=== PATIENT | male | born 1935 | race Caucasian/White ===

== ENCOUNTER 2016-11-18 22:41 | Inpatient (IN) | payer OTHER ==
[~2016-11-18] VITALS: Ht 172.7 cm; Wt 113.4 kg
[~2016-11-18 22:41] MED LIST: ALLOPURINOL300 MG PO; ATENOLOL25 MG PO; AVODART0.5 MG PO; ECOTRIN81 MG PO; FUROSEMIDE20 MG PO; HYDRALAZINE HCL25 MG PO; NORVASC 5MG TAB5 MG PO; PRAVASTATIN SOD40 MG PO; PRAZOSIN HYDROCH2 MG PO; TAMIFLU 75MG75 MG PO; TAMSULOSIN HYD0.4 MG PO; VALSARTAN80 MG PO
--- NOTE | 2016-11-18 22:46 | ED AMS/SEIZURE/WEAK/DIZZY ---
History of Present Illness General Chief Complaint: Altered Mental Status Stated Complaint: BIBA ALTERED MENTAL STATUS Source: patient, EMS Exam Limitations: confusion Vital Signs & Intake/Output Vital Signs & Intake/Output Vital Signs Date Time Temp Pulse Resp B/P B/P Pulse O2 O2 Flow FiO2 Mean Ox Delivery Rate 11/19 0139 100.0 84 18 136/70 94 Nasal 2.0L Cannula 11/19 0041 100.0 11/19 0000 Room Air 11/18 2340 104.2 11/18 2242 104.2 108 18 127/86 94 Room Air ED Intake and Output 11/19 0000 11/18 1200 Intake Total Output Total 100 Balance -100 Output, Urine 100 Patient 250 lb Weight Weight Reported by Patient Measurement Method Allergies Coded Allergies: NO KNOWN ALLERGIES (06/20/14) Reconcile Medications Allopurinol 300 MG TAB 1 TAB PO DAILY GOUT (Reported) Amlodipine (Norvasc 5MG Tab) 5 MG TABLET 1 TAB PO DAILY BP (Reported) Aspirin (Ecotrin) 81 MG ECT 1 TAB PO DAILY HEART (Reported) Atenolol 25 MG TABLET 1 TAB PO DAILY BP (Reported) Furosemide 20 MG TABLET 1 TAB PO BID DIURETIC (Reported) HYDRALAZINE HCL (Hydralazine HCl) 25 MG TABLET 1 TAB PO BID BP (Reported) Pravastatin Sodium 40 MG TABLET 1 TAB PO QPM CHOLESTEROL (Reported) TAMSULOSIN HCL (Tamsulosin Hydrochloride) 0.4 MG CAP.ER.24H 1 CAP PO DAILY PROSTATE (Reported) Valsartan 80 MG TABLET 1 TAB PO DAILY BP (Reported) Triage Nurses Notes Reviewed? yes Onset: Gradual Duration: day(s): Timing: recent history Injury Environment: home Severity: moderate Modifying Factors: Improves With: rest. Associated Symptoms: cough HPI: 81 yo gentleman presents with fever, cough, confusion, weakness and decreased oral intake for at least one day. Past History Travel History Traveled to [place] past 21 day No Medical History Any Pertinent Medical History? see below for history Neurological: NONE EENT: NONE Cardiovascular: hypertension, hyperlipidemia Respiratory: obstructive sleep apnea Gastrointestinal: constipation Hepatic: NONE Renal: NONE Musculoskeletal: NONE Psychiatric: NONE Endocrine: NONE Cancer(s): NONE DIRECTOR DIVERSITY/Reproductive: NONE History of MRSA: No History of VRE: No History of CDIFF: No Surgical History Surgical History: L HIP REPLAC. Psychosocial History Who do you live with Spouse Services at Home None What is your primary language Serbian Family History Family History, If Any: Relation not specified for: *No pertinent family history Hx Contributory? No Review of Systems Review of Systems Constitutional: Reports: no symptoms. EENTM: Reports: no symptoms. Respiratory: Reports: no symptoms. Cardiovascular: Reports: no symptoms. GI: Reports: no symptoms. Genitourinary: Reports: no symptoms. Musculoskeletal: Reports: no symptoms. Skin: Reports: no symptoms. Neurological/Psychological: Reports: no symptoms. Hematologic/Endocrine: Reports: no symptoms. Immunologic/Allergic: Reports: no symptoms. All Other Systems: Reviewed and Negative Physical Exam Physical Exam General Appearance: well developed/nourished, mild distress Head: atraumatic, normal appearance Eyes: Bilateral: normal appearance. Ears, Nose, Throat: dry mucosa Neck: normal inspection, supple, full range of motion Respiratory: quiet respiration, bilateral rhonchi with decreased breath sounds Cardiovascular: regular rate/rhythm Gastrointestinal: normal bowel sounds, soft, non-tender, no organomegaly Back: normal inspection, normal range of motion Extremities: normal range of motion Neurologic/Psych: no motor/sensory deficits, lethargic, knows name, knows "hospital", does not know day or year Skin: intact, normal color, warm/dry Core Measures ACS in differential dx? No CVA/TIA Diagnosis: No Severe Sepsis Present: No Septic Shock Present: No Progress Differential Diagnosis: dehydration, hypoglycemia, hypoxia, UTI/pyelo Plan of Care: Orders Procedure Date/time Status Nothing by Mouth 11/19 B Active LACTIC ACID 11/19 0202 Active Saline Lock 11/19 0156 Active Misc Message 11/19 0156 Active ED Holding Orders 11/19 0156 Active Admit to inpatient 11/19 0156 Active Vital Signs 11/19 0156 Active Code Status 11/19 0156 Active BLOOD CULTURE 11/19 0020 Active Add-on Test (ER Only) 11/19 0019 Active RAPID VIRAL INFLUENZA A 11/19 0019 Complete ARTERIAL BLOOD GAS (GEN) 11/19 0002 Complete LYME TITRE 11/18 2326 Active LACTIC ACID 11/18 2302 Complete CULTURE,URINE 11/18 2300 Active URINALYSIS 11/18 2300 Complete TROPONIN LEVEL 11/18 2256 Complete COMPREHENSIVE METABOLIC PANEL 11/18 2256 Complete CBC WITHOUT DIFFERENTIAL 11/19 2255 Complete EKG 11/18 225 Active Current Medications Sig/Mark Start time Last Medication Dose Stop Time Status Admin Azithromycin 500 MG ONCE ONE 11/19 0200 UNVr (Zithromax) 11/19 025 Sodium Chloride 250 ML (Normal Saline 0.9%) Laboratory Tests 11/19/16 0010: pH 7.42, pCO2 38, pO2 62 L, HCO3 24, ABG O2 Sat (Measured) 91.0 L, P-50 (Temp Corrected) N, Carboxyhemoglobin 0.5 L, O2 Concentration % 2L, O2 Delivery Method N/C, Phlebotomy Draw Site RIGHT RADIAL 11/18/162331: Urine Color YEL, Urine Clarity CLEAR, Urine pH 6.5, Ur Specific [place] 1.020, Urine Protein >=300 H, Urine Ketones NEG, Urine Nitrite NEG, Urine Bilirubin NEG, Urine Urobilinogen 0.2, Ur Leukocyte Esterase NEG, Ur Microscopic SEDIMENT EXAMINED, Urine RBC 1-3, Ur Epithelial Cells RARE, Hyaline Casts RARE H, Urine Hemoglobin MOD H, Urine Glucose NEG 11/18/162325: Lactic Acid 2.0 11/18/162325: Anion Gap 12, Estimated GFR 45 L, BUN/Creatinine Ratio 24.0, Glucose 110 H, Calcium 8.5, Total Bilirubin 0.4, AST 29, ALT 32, Alkaline Phosphatase 70, Troponin I 0.07, Total Protein 6.3, Albumin 3.4 L, Globulin 2.9, Albumin/ Globulin Ratio 1.2, CBC w Diff NO MAN DIFF REQ, RBC 4.78, MCV 92.3, MCH 30.4, RDW 13.8, MPV 9.4, Gran % 79.7 H, Lymphocytes % 8.3 L, Monocytes % 11.8 H, Eosinophils % 0, Basophils % 0.2, Absolute Granulocytes 7.9 H, Absolute Lymphocytes 0.8 L, Absolute Monocytes 1.2 H, Absolute Eosinophils 0, Absolute Basophils 0, PUBS MCHC 32.9 L, Lyme Disease Antibody Pending Microbiology 11/19 44 BLOOD: Blood Culture - RECD 11/20 39 NASOPHARYN: Influenza Virus A & B Rapid Smear - COMP 11/19 003 BLOOD: Blood Culture - RECD 11/19 2331 URINE ROUT: Urine Culture - RECD Diagnostic Imaging: Viewed by Me: Radiology Read, CT Scan. Discussed w/RAD: Radiology Read, CT Scan. Radiology Impression: head ct... no acute change. CXR Impression: no acute abnormality, no infiltrates, normal size heart, normal mediastinum Initial ED EKG: normal axis, normal intervals, normal p-waves, normal QRS complex, normal sinus rhythm Comments: PATIENT: QUINN CUMMINGS PRESENT AGE: 81 PATIENT ACCOUNT NO: [id number] : 37 LOCATION: [facility] ORDERING PHYSICIAN: TONIE CAMPOS MD SERVICE DATE: 11/18/16 EXAM TYPE: RAD - XRY-PORTABLE CHEST XRAY EXAMINATION: XR PORTABLE CHEST CLINICAL INFORMATION: Hypoxia COMPARISON: Chest x-ray 01/30/2015 TECHNIQUE: Portable frontal view of the chest was obtained. 11:31 PM FINDINGS: Lung volume is low. Heart size enlarged. No pulmonary vascular congestion. No infiltrate or pleural effusion. Compared to prior study no change. IMPRESSION: No acute abnormality of chest. DICTATED BY: JADA SON MD DATE/TIME DICTATED:11/18/162358 WHEEL PRESS CLERK:VERO DATE/TIME TRANSCRIBED:11/18/162358 CONFIDENTIAL, DO NOT COPY WITHOUT APPROPRIATE AUTHORIZATION. <Electronically signed in Other Vendor System> SIGNED BY: JADA SON MD 11/19/16 0004 Departure Departure Disposition: STILL A PATIENT Condition: Stable Clinical Impression Primary Impression: Sepsis Secondary Impressions: Pneumonia Referrals: JOHN PECK,DREW Arteaga (PCP/Family) Departure Forms: Customer Survey General Discharge Information Comments 11/18/16, 23:00.... O2 SAT 88% ON ROOM AIR... CORRECTS TO 95% ON 2LNC Admission Note Spoke With: COMPA DIXON MD Documentation of Exam: Documentation of any treatments & extenuating circumstances including Concerns Regarding Discharge (functional status, medication knowledge or non-compliance, living conditions, etc.) that warrant an admission rather than observation: pt hypoxic with phlegmy cough, meets criteria for sepsis.... pt merits 02 support, iv abx. other labs stable.... cxr neg, but I believe this is due to body habitus and dehydration. Critical Care Note Critical Care Note Critical Care Time: 30-74 min
[2016-11-18 23:52] LABS: ABSOLUTE BASOPHIL COUNT 0 /CUMM (0.0-0.2); ABSOLUTE EOSINOPHIL COUNT 0 /CUMM (0.0-0.7); ABSOLUTE GRANULOCYTE CT 7.9 /CUMM (1.4-6.5); ABSOLUTE LYMPH COUNT 0.8 /CUMM (1.2-3.4); ABSOLUTE MONOCYTE COUNT 1.2 /CUMM (0.10-0.60); BASOPHIL % 0.2 % (0.0-2.0); EOSINOPHIL % 0 % (0-5); GRANULOCYTE % 79.7 % (42.2-75.2); HEMATOCRIT 44.2 % (42-52); MEAN CORPUSCULAR HGB 30.4 PG (27.0-31.0); MEAN CORPUSCULAR HGB CONC 32.9 G/DL (33.0-37.0); MEAN CORPUSCULAR VOLUME 92.3 FL (80.0-94.0); MEAN PLATELET VOLUME 9.4 FL (7.4-10.4); PLATELET COUNT 178 /CUMM (130-400); RBC DISTRIBUTION WIDTH 13.8 % (11.5-14.5); RED BLOOD CELL CT 4.78 /CUMM (4.70-6.10); WHITE BLOOD CELL COUNT 9.9 /CUMM (4.8-10.8)
--- NOTE | 2016-11-19 00:04 | RADIOLOGY REPORT ---
EXAMINATION: XR PORTABLE CHEST CLINICAL INFORMATION: Hypoxia COMPARISON: Chest x-ray 01/30/2015 TECHNIQUE: Portable frontal view of the chest was obtained. 11:31 PM FINDINGS: Lung volume is low. Heart size enlarged. No pulmonary vascular congestion. No infiltrate or pleural effusion. Compared to prior study no change. IMPRESSION: No acute abnormality of chest.
--- NOTE | 2016-11-19 01:30 | CT SCAN REPORT ---
EXAMINATION: CT HEAD WITHOUT CONTRAST CLINICAL INFORMATION: Mental status change. COMPARISON: None available. TECHNIQUE: Contiguous axial imaging was performed from the skull base to vertex without intravenous administration of contrast. FINDINGS: There is no intracranial hemorrhage, hydrocephalus, extra-axial surface collection, midline shift, or other herniation pattern. 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 Mcclure to white matter differentiation is diffusely maintained without evidence of an evolved acute territorial infarct. The basilar cisterns are preserved. No significant soft tissue abnormality. No acute osseous abnormality. Near complete opacification of the left maxillary sinus. Mild mucosal thickening within the right maxillary sinus and throughout the ethmoid air cells and left frontal sinus. Mastoid air cells are clear. IMPRESSION: - No acute intracranial abnormality. - Sinus disease including complete opacification of the left maxillary sinus that should be correlated for clinical signs of acute sinusitis.
--- NOTE | 2016-11-19 02:51 | History & Physical ---
IZABEL PECK,DIDIDaniela 11/19/16 0248: General Information and HPI MD Statement: I have seen and personally examined QUINN CUMMINGS and documented this H&P. The patient is a 81 year old M who presented with a patient stated chief complaint of [AMS and hematuria]. Source of Information: family, old records Exam Limitations: unable to give history, not alert/orientated, clinical condition, confusion, poor historian History of Present Illness: This is a 80 yo male with PMH of BPH, HTN, DAMARIS on CPAP, gout who was brought in by ambulance for chief complaint of altered mental status, fever and hematuria. Patient is confused and is currently a poor historian. He is not sure why he is in the ED. He does endorse some red colored urine yesterday. Denies any chest pain, shortness of breath, diarrhea, constipation, cough, headache, change in vision, sore throat, or abdominal pain. Denies feeling poorly or even out of the ordinary. He is able to recognize that he is confused Spoke with the patient's son who stated that patient was in his normal health prior to yesterday. The only complaint noted was some hematuria in the morning. And patient went out into his garden for a few hours and when he returned he seemed to be altered and confused. Then he became weak and unable to rise up from his chair. Patient denies any change in medication or recent travel. He states that he bruised his own wine which he drinks nightly. 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 Allergies/Medications Allergies: Coded Allergies: NO KNOWN ALLERGIES (06/20/14) Home Med list Allopurinol 300 MG TAB 1 TAB PO DAILY GOUT (Reported) Amlodipine (Norvasc 5MG Tab) 5 MG TABLET 1 TAB PO DAILY BP (Reported) Aspirin (Ecotrin) 81 MG ECT 1 TAB PO DAILY HEART (Reported) Atenolol 25 MG TABLET 1 TAB PO DAILY BP (Reported) Furosemide 20 MG TABLET 1 TAB PO BID DIURETIC (Reported) HYDRALAZINE HCL (Hydralazine HCl) 25 MG TABLET 1 TAB PO BID BP (Reported) Pravastatin Sodium 40 MG TABLET 1 TAB PO QPM CHOLESTEROL (Reported) TAMSULOSIN HCL (Tamsulosin Hydrochloride) 0.4 MG CAP.ER.24H 1 CAP PO DAILY PROSTATE (Reported) Valsartan 80 MG TABLET 1 TAB PO DAILY BP (Reported) Compliance With Home Meds: UNKNOWN Past History Travel History Traveled to [place] past 21 day No Medical History Neurological: NONE EENT: NONE Cardiovascular: hypertension, hyperlipidemia Respiratory: obstructive sleep apnea Gastrointestinal: constipation Hepatic: NONE Renal: NONE Musculoskeletal: NONE Psychiatric: NONE Endocrine: NONE Cancer(s): NONE DIRECTOR SUPPLY CHAIN/Reproductive: NONE History of MRSA: No History of VRE: No History of CDIFF: No Surgical History Surgical History: L HIP REPLAC. Past Family/Social History Family History Relations & Conditions if any Relation not specified for: *No pertinent family history Psychosocial History Services at Home: None ETOH Use: occasional use Illicit Drug Use: denies illicit drug use Review of Systems Review of Systems Constitutional: Reports: diaphoresis, fever, malaise, weakness. Denies: chills. EENTM: Denies: blurred vision, double vision, visual changes, ear pain, hearing changes , nasal congestion, epistaxis, nasal pain, throat pain. Cardiovascular: Denies: chest pain, palpitations. Respiratory: Denies: cough, short of breath, sputum production, wheezing. GI: Denies: abdominal pain, constipation, diarrhea, nausea, vomiting. Genitourinary: Reports: hematuria. Musculoskeletal: Reports: no symptoms. Skin: Reports: no symptoms. Neurological/Psychological: Reports: cognitive dysfunction, confusion. Exam & Diagnostic Data Last 24 Hrs of Vital Signs/I&O Vital Signs Date Time Temp Pulse Resp B/P B/P Pulse O2 O2 Flow FiO2 Mean Ox Delivery Rate 11/19 0325 98.9 73 18 130/73 98 Nasal 2.0L Cannula 11/19 0139 100.0 84 18 136/70 94 Nasal 2.0L Cannula 11/19 0041 100.0 11/19 0000 Room Air 11/18 2340 104.2 11/18 2242 104.2 108 18 127/86 94 Room Air Intake & Output 11/19 0800 11/19 0000 11/18 1600 Intake Total Output Total 100 Balance -100 Output, Urine 100 Patient 113.398 kg Weight Weight Reported by Patient Measurement Method Physical Exam General Appearance No Acute Distress, patient is confused. AO x 1 Skin face flushed. Warm to touch. Diaphoretic. Skin Temp/Moisture Exam: Hot/Diaphoretic Sepsis Skin Exam (color): Flushed, adequate cap Refill HEENT Atraumatic, PERRLA, EOMI, neck supple, no pharyngeal erythema. no evidence of ear infections. no tenderness to maxillary or frontal sinuses Neck Supple, No LAD Cardiovascular Regular Rate, Normal S1, Normal S2, 2/6 murmur Lungs crackles in right middle and lower lobes Abdomen Soft Neurological Strength at 5/5 X4 Ext, Sensation Intact, Cranial Nerves 3-12 NL, confused, Pinpoint pupils Extremities 1+ edema in bilateral lower extremities Vascular Normal Pulses Last 24 Hrs of Labs/Negro: Laboratory Tests 11/19/16 0212: Lactic Acid 0.6 L 11/19/16 0010: pH 7.42, pCO2 38, pO2 62 L, HCO3 24, ABG O2 Sat (Measured) 91.0 L, P-50 (Temp Corrected) N, Carboxyhemoglobin 0.5 L, O2 Concentration % 2L, O2 Delivery Method N/C, Phlebotomy Draw Site RIGHT RADIAL 11/18/16 2332: Urine Opiates Screen < 100.00, Methadone Screen < 40, Barbiturate Screen < 60, Ur Phencyclidine Scrn < 6.00, Amphetamines Screen < 100, U Benzodiazepines Scrn < 85, Urine Cocaine Screen < 50, Urine Cannabis Screen < 5.00, Urine Color YEL, Urine Clarity CLEAR, Urine pH 6.5, Ur Specific [place] 1.020, Urine Protein >= 300 H, Urine Ketones NEG, Urine Nitrite NEG, Urine Bilirubin NEG, Urine Urobilinogen 0.2, Ur Leukocyte Esterase NEG, Ur Microscopic SEDIMENT EXAMINED, Urine RBC 1-3, Ur Epithelial Cells RARE, Hyaline Casts RARE H, Urine Hemoglobin MOD H, Urine Glucose NEG 11/18/16 2326: Lactic Acid 2.0 11/18/162325: Anion Gap 12, Estimated GFR 45 L, BUN/Creatinine Ratio 24.0, Glucose 110 H, Calcium 8.5, Total Bilirubin 0.4, AST 29, ALT 32, Alkaline Phosphatase 70, Troponin I 0.07, Total Protein 6.3, Albumin 3.4 L, Globulin 2.9, Albumin/ Globulin Ratio 1.2, CBC w Diff NO MAN DIFF REQ, RBC 4.78, MCV 92.3, MCH 30.4, RDW 13.8, MPV 9.4, Gran % 79.7 H, Lymphocytes % 8.3 L, Monocytes % 11.8 H, Eosinophils % 0, Basophils % 0.2, Absolute Granulocytes 7.9 H, Absolute Lymphocytes 0.8 L, Absolute Monocytes 1.2 H, Absolute Eosinophils 0, Absolute Basophils 0, PUBS MCHC 32.9 L, Lyme Disease Antibody Pending Microbiology 11/19 004 BLOOD: Blood Culture - RECD 11/19 0040 NASOPHARYN: Influenza Virus A & B Rapid Smear - COMP 11/19 0035 BLOOD: Blood Culture - RECD 11/18 2332 URINE ROUT: Urine Culture - RECD Assessment/Plan Assessment: This is a 74-year-old male with past medical history significant for BPH, hypertension, DAMARIS on CPAP, gout, who comes in for chief complaint for altered mental status and hematuria. Patient was found to be significantly febrile up to 104 in ED. As such he'll be admitted to the general medicine floor for further workup and management. ED work up shows: Vitals: 104.2, 108, 18, 127/86, 94 ABG: PH 7.42, PCO2 38, bicarbonate 24 UA: Positive for protein, rare hyaline casts and moderate urine hemoglobin CBC: White count 9.9, hemoglobin 14.5, hematocrit 44.2, platelet 178. No bands BEP: BUN 36, creatinine 1.5. Lactic acid 2.0 CXR IMPRESSION: No acute abnormality of chest. CT HEAD IMPRESSION: No acute intracranial abnormality. Sinus disease including complete opacification of the left maxillary sinus that should be correlated for clinical signs of acute sinusitis. PLAN Sepsis of unknown origin: Patient has MAXIMUM TEMPERATURE 104.2, heart rate 108. Blood pressure 127/86. No white count. Source of infection currently unknown. CT head scan does show complete opacification left maxillary sinus but patient has no tenderness to palpation in that area. The CT Chest/abdomen and pelvis was negative for possible sources. Pt has qSOFA of 1. If all routine workup is negative, considering sudden onset of fever, LE weakness and altered mental status unusual etiologies could be considered including tick borne or mosquito borne illnesses. Pt has no meningeal signs, nuchal rigidity, focal neurological deficits, but he does have pin point pupils. If AMS worsening and no source readily available consider LP. Pt has a hip replacement in l. hip. Joint non-tender, warm with full ROM. * Blood culture * Urine culture * Sputum culture * Negative Lactic acid x 2 * Pt got 1 dose of ceftriaxone and azithromycin in ED * Flu swab * Repeat EKG and TROP * If diarrhea then send out for O/P * If continued AMS then consider lumbar puncture even though patient has already received a dose of ceftriaxone and azithromycin. * We are STOPPING antibiotics after the initial dose in ED and will monitor patient. He will need re-evaluation for abx in AM. * Lyme titer * ID consult Hematuria: Per family, they noted blood in patient's urine. UA in hospital shows moderate hemoglobin. Patient has known BPH. Patient has a history of BPH. Denies any pain however cannot rule out prostatitis etc. * UA * UC * Cont' Flomax for BPH CK D IIIa: Patient comes in with creatinine 1.5 which is around his baseline. * Continue to monitor BEP CAD/HTN: Con't home meds with hold paramenters in place. FULL CODE REGULAR DIET ALPS As Ranked By This Provider Problem List: 1. BPH (benign prostatic hyperplasia) 2. HTN (hypertension) 3. Sepsis Core Measures/Miscellaneous Acute Coronary Syndrome ACS Diagnosis: No Cerebrovascular Accident CVA/TIA Diagnosis: No Congestive Heart Failure CHF Diagnosis: No Venous Thromboembolism VTE Risk Factors: Acute medical illness, Age > 40 No [facility] VTE prophylaxis d/t: VTE low risk No VTE Pharm Prophylaxis d/t: VTE low risk VTE Diagnosis: No VTE Type: NONE VTE Confirmed by (Test): NONE Severe Sepsis Severe Sepsis Present: No Septic Shock Septic Shock Present: No Miscellaneous Documentation Attending Case Discussed With: GINA DIXON MDDaniela Primary Care Physician: DREW LOPEZ MD Patient sees these Specialists unknown Level of Patient Care: General Medicine Consults Needed: Consulting Specialty: Infectious Disease ZAKC PECK, FRANCK 11/19/16 0549: Attending Review Statement Attending Statement Attending MD Statement: examined this patient, discuss w/resident/PA/OIL FIELD TECHNICIAN, agreed w/resident/PA/OIL FIELD TECHNICIAN Attending Assessment/Plan: 81 yo obese Sammarinese speaking M with h/o HTN, BPH, DAMARIS on CPAP, CKD stage 3A, is brought in for evaluation of confusion and fever. Patient reports an episode of hematuria but does not provide any other details. Per family, patient was out in the yard for a few hours and when he returned family noted he was confused and weak with gait instability. Patient's son is an knockdown man at [employer]. Vitals: Tmax 104.2, tachycardic to 108, BP 130/73, sats 98% on 2L. Exam: lethargic, diaphoretic (sheets were soaked in sweat), arousable but confused, oriented x1, does not know why he is in the ER, no nuchal rigidity, pupils are small 2-3 mm but RTL, dry mucous membranes, otoscopic exam neg, no obvious rash on the body, no skin or soft tissue infection. No nuchal rigidity, negative kernigs and brudzinski's sign as per resident. Chest basilar rhonchi+, Heart S1S2 regular, systolic murmur+, Abd soft, tender in the RLQ, BS+. LE: trace edema. Labs: no leukocytosis or bandemia, BUN 36, creat 1.5, LFTs normal, trop neg, CK 115, lactic acid 2.0 --> 0.6. UA proteinuria, otherwise neg. Utox neg. AB.42/38/62/24. CXR: no infiltrate or congestion. CT head: no acute IC abnormality. Sinus disease complete opacification of left maxillary sinus ? acute sinusitis. CT CAP: no acute findings, mild bibasilar atelectasis, no pneumonia, bilateral renal cysts. Flu swab negative. EKG: sinus tachycardia, no acute changes. Patient received IV ceftriaxone and azithro in the ER for a possible pneumonia. 1. SIRS (fever, tachycardia) with no clear source. ?Viral infection. No evidence of pneumonia, UTI or SSTI. CT head shows signs of acute sinusitis, however patient denies s/s nasal congestion, discharge, cough, etc. Meningitis is a possibility. Cannot rule out tick borne illness ?Lyme's. GM admit, panculture, IV fluids, patient received IV ceftriaxone and azithro in the ER, hold off further antibiotics. Check ESR, CRP, HIV. TRC nebs, incentive spirometry. Patient appears more awake, oriented after fever defervesced. Await lyme titers. Acute sinusitis can be managed symptomaticially nebs, mucinex as needed. Consider lumbar puncture. Patient fulfills criteria of fever and AMS, but no nuchal rigidity. Obtain ID consult. Hold lasix. Check another EKG and troponin in AM. DVT ppx Hep SC. Full code Please confirm home meds in AM. NAI PECK,[facility] 11/19/16 0625: Resident Review Statement Resident Statement: examined this patient, discussed with internet developer, agreed with internet developer, discussed with family Other Findings: 80 yo man with a PMH of BPH, HTN, DAMARIS on CPAP, gout who was brought in by ambulance for chief complaint of altered mental status, fever and hematuria. Information from patient and from his son over the phone reveals that he was in his normal state of health until he developed some hematuria 1 day ago in the morning. He subsequently went to work in his garden and then out in an unknwon location for about an hour before return. He developed leg weakness and poor coordination after returning. He was then noted to be confused and on account of this, his son came to see him and then called for EMS. On interaction, he appears slightly confused. He denies any chest pain, shortness of breath, diarrhea, constipation, cough, headache, change in vision, sore throat, or abdominal pain. enies feeling poorly or even out of the ordinary. He adamantly denies any change in medication or recent travel. He states that he brews his own wine which he drinks nightly. 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 Vitals: Tmax 104.2, tachycardic to 108, BP 130/73, sats 98% on 2L Physical Exam General Appearance No Acute Distress, patient is confused. AO x 1 Skin face flushed. Warm to touch. Diaphoretic. Skin Temp/Moisture Exam: Hot/Diaphoretic Sepsis Skin Exam (color): Flushed, adequate cap Refill HEENT Atraumatic, PERRLA, EOMI, neck supple, no pharyngeal erythema. no evidence of ear infections on otoscopy. no tenderness to maxillary or frontal sinuses Neck: Supple, Brudzinski sign negative Supple, No LAD Cardiovascular Regular Rate, Normal S1, Normal S2, 2/6 murmur Lungs crackles in right middle and lower lobes Abdomen Soft Neurological Strength at 5/5 X4 Ext, Sensation Intact, Cranial Nerves 3-12 NL, confused, Pinpoint pupils Extremities 1+ edema in bilateral lower extremities Labs CBC: WBC 9.9, H/H 13.5/40.9, Plt 163, No leukocytosis or bandemia BEP: 141,K 4.1, Creat 1.5, glucose 110 mg/dl, BUN 36,LFTs normal, trop neg, CK 115, lactic acid 2.0 --> 0.6. Urinalysis:Proteinuria, otherwise neg. Utox negative. AB.42/38/62/24 Micro: Flu swab negative,Strep pneumo/legionella urinary Ag negative, Blood culture, Urine cultures pending Imaging CXR: no infiltrate or congestion. CT head: no acute IC abnormality. Sinus disease complete opacification of left maxillary sinus ?acute sinusitis. CT CAP: no acute findings, mild bibasilar atelectasis, no pneumonia, bilateral renal cysts. Flu swab negative. EKG: sinus tachycardia, no acute changes. Problem list 1. SIRS/Fever of unknown origin 2. Altered mental status 3. Presumed pneumonia 4. History of hypertension 5. Hematuria likely secondary to BPH Plan Admit to General Medicine Follow up Blood, Urine cultures No focal signs on examination, low concern for bacterial meningitis However we will monitor mental/neurological status closely and continue IV ceftriaxone 1 gram Q24 hrs and IV azithromycin 500 mg daily for presumed pneumonia Follow up blood cultures and urine cultures Lyme antibody titers ID consult in the AM Monitor CBC for leukocytosis If no response or condition worsens will do LP IV normal saline 1 L at 75 cc/hr Monitor BEP Hold lasix home medication DVT prophylaxis with ALPS CODE STATUS is full code
--- NOTE | 2016-11-19 04:27 | CT SCAN REPORT ---
CT CHEST WITHOUT IV CONTRAST CT ABDOMEN AND PELVIS WITHOUT IV CONTRAST INDICATION: Fever, shortness of breath, and altered mental status. COMPARISON: Abdominal CT June 20, 2014. TECHNIQUE: A multidetector CT acquisition of the chest, abdomen, and pelvis are was obtained without IV contrast FINDINGS: CHEST: There is no focal consolidation, pleural effusion, or pneumothorax. Mild dependent atelectasis at the lung bases. The thoracic aorta is normal in caliber. The heart is enlarged and there is no pericardial effusion. There is no mediastinal, hilar, or axillary adenopathy. No significant soft tissue findings within the chest. The partially visualized upper abdomen is unremarkable. No acute osseous abnormalities. There is diffuse idiopathic skeletal hyperostosis within the thoracic spine. Severe degenerative changes involving the right glenohumeral joint. ABDOMEN AND PELVIS: Limited evaluation of the unenhanced liver, spleen, adrenal glands, gallbladder, and pancreas reveals no definite abnormality. The kidneys are symmetric in size without evidence of hydronephrosis or nephrolithiasis. There are bilateral renal cysts. The large and small bowel are normal in caliber without evidence of mechanical obstruction. Sigmoid diverticulosis without acute diverticulitis. No focal inflammatory changes adjacent to the large or the small bowel. The appendix is normal. There is no free air and there is no intra-abdominal free fluid. No mesenteric or retroperitoneal adenopathy. The pelvic viscera are normal. No pelvic adenopathy. No free fluid within the pelvis. There are no acute osseous abnormalities. There is a left total hip arthroplasty. No significant soft tissue abnormality. IMPRESSION: - No acute findings within the chest, abdomen, or pelvis. - Mild bibasilar atelectasis. No evidence of focal pneumonia. - Sigmoid diverticulosis without acute diverticulitis. - Bilateral renal cysts.
--- NOTE | 2016-11-19 04:33 | Admission Certification ---
Admission Certification Certification Statement - As attending physician, I certify that at the time of - admission, based on clinical presentation, severity of - symptoms, need for further diagnostic testing and - therapeutic interventions, and risk of adverse outcomes - without in-hospital treatment, in my clinical assessment, - this patient requires an acute hospital stay for a minimum - of two nights or longer. I have also considered psychsocial - factors such as support system, advanced age, financial - issues, cognitive issues, and failed out-patient treatments, - past re-admission history, safety of patient, and lack of - compliance as applicable. Specific rationale supporting this admission is: SIRS, fever of unclear etiology.
[2016-11-19 06:57] VITALS: BP 136/70
[2016-11-19 08:39] LABS: ABSOLUTE BASOPHIL COUNT 0 /CUMM (0.0-0.2); ABSOLUTE EOSINOPHIL COUNT 0 /CUMM (0.0-0.7); ABSOLUTE GRANULOCYTE CT 8.2 /CUMM (1.4-6.5); ABSOLUTE MONOCYTE COUNT 1.5 /CUMM (0.10-0.60); BASOPHIL % 0.2 % (0.0-2.0); EOSINOPHIL % 0.1 % (0-5); GRANULOCYTE % 76.1 % (42.2-75.2); HEMATOCRIT 40.9 % (42-52); MEAN CORPUSCULAR HGB 30.5 PG (27.0-31.0); MEAN CORPUSCULAR VOLUME 92.4 FL (80.0-94.0); MEAN PLATELET VOLUME 9.2 FL (7.4-10.4); PLATELET COUNT 163 /CUMM (130-400); RBC DISTRIBUTION WIDTH 14.4 % (11.5-14.5); RED BLOOD CELL CT 4.43 /CUMM (4.70-6.10); WHITE BLOOD CELL COUNT 10.7 /CUMM (4.8-10.8)
--- NOTE | 2016-11-19 11:50 | PN- Att Addend ---
Attending Addendum Attending Brief Note "This is a 80 yo male with PMH of BPH, HTN, DAMARIS on CPAP, gout who was brought in by ambulance for chief complaint of altered mental status, fever and hematuria. Patient is confused and is currently a poor historian. " ASSESSMENT 1. Fever with confusion 2. Toxic metabolic encephalopathy 3. Absent leukocytosis 4. Elevated ESR 5. SINAN on CKD 6. Hematuria with h/h stable. 7. Acute sinusitis PLAN admit to inpatient medical services c/w IVF hydration, c/w broad spectrum abx, f/u labs, f/u cultures. ID consult, monitor neurochecks, fall precuaitons. monitor labs gi/dvt prophalxis full code
--- NOTE | 2016-11-19 11:54 | PN- Student ---
Subjective Subjective: Today Mr. Crespo seems to be alert but slightly confused. He complains of burning chest pain when he coughs as well as some pain in his throat. He denies any production recently in his cough but stated that he did cough up white phlegm a few days ago. He denies any constant chest pain, palpitations, chest heaviness, hemoptysis, dysuria, headache, N/V/D, Abdominal pain, back pain or extremity pain. He states that he doesnt sleep well due to his sleep apnea. He also stated that he had multiple episodes in the past of flecks of blood in his urine. He stated that he went to see his doctor for this and each time was negative for any infection, cancer, or illness. Objective Objective: Vital Signs Date Time Temp Pulse Resp B/P B/P Pulse O2 O2 Flow FiO2 Mean Ox Delivery Rate 11/19 1008 97.5 50 20 136/70 11/19 0657 97.5 50 20 136/70 95 Nasal 2.0L Cannula 11/19 0451 Nasal 2.0L Cannula 11/19 0325 98.9 73 18 130/73 98 Nasal 2.0L Cannula 11/19 0139 100.0 84 18 136/70 94 Nasal 2.0L Cannula 11/19 0041 100.0 11/19 0000 Room Air 11/18 2340 104.2 11/18 2242 104.2 108 18 127/86 94 Room Air Intake & Output 11/19 1600 11/19 0800 11/19 0000 Intake Total 250 Output Total 600 350 Balance -350 -350 Intake, IV 250 Output, Urine 600 350 Patient 250 lb 250 lb Weight Weight Reported by Patient Reported by Patient Measurement Method PE: General- alert and oriented but seems to be a bit confused, poor historian, cooperative, NAD HEENT- atraumatic, PERRLA, membranes moist and pink, slight erythema of oropharynx Neck- supple, no lymphadenopathy or thyromegaly, trachea is midline CV- S1 and S2 appreciated, no murmurs or rubs heard Chest- equal chest rise bilaterally, rhonchi heard throughout on auscultation, good air movement otherwise Abdomen- soft, non-tender to palpation Back- no point tenderness over spinous processes, no step off deformity, no tenderness of costovertebral angle Extremities- no edema, 5/5 strength x 4 extremities, sensation intact Skin- no lesions or rashes noted, warm and well perfused Results Results: Laboratory Tests 11/19/16 0730: Troponin I 0.09 11/19/16 0730: Anion Gap 8, Estimated GFR 45 L, BUN/Creatinine Ratio 23.3, CBC w Diff NO MAN DIFF REQ, RBC 4.43 L, MCV 92.4, MCH 30.5, RDW 14.4, MPV 9.2, Gran % 76.1 H, Lymphocytes % 9.5 L, Monocytes % 14.1 H, Eosinophils % 0.1, Basophils % 0.2, Absolute Granulocytes 8.2 H, Absolute Lymphocytes 1.0 L, Absolute Monocytes 1.5 H, Absolute Eosinophils 0, Absolute Basophils 0, PUBS MCHC 33.0, HIV 1&2 Ab Western Blot Pending 11/19/16 0212: Lactic Acid 0.6 L 11/19/16 0019: Virus Culture Pending 11/19/16 0010: pH 7.42, pCO2 38, pO2 62 L, HCO3 24, ABG O2 Sat (Measured) 91.0 L, P-50 (Temp Corrected) N, Carboxyhemoglobin 0.5 L, O2 Concentration % 2L, O2 Delivery Method N/C, Phlebotomy Draw Site RIGHT RADIAL 11/18/162: Urine Opiates Screen < 100.00, Methadone Screen < 40, Barbiturate Screen < 60, Ur Phencyclidine Scrn < 6.00, Amphetamines Screen < 100, U Benzodiazepines Scrn < 85, Urine Cocaine Screen < 50, Urine Cannabis Screen < 5.00, Urine Color YEL, Urine Clarity CLEAR, Urine pH 6.5, Ur Specific [place] 1.020, Urine Protein >= 300 H, Urine Ketones NEG, Urine Nitrite NEG, Urine Bilirubin NEG, Urine Urobilinogen 0.2, Ur Leukocyte Esterase NEG, Ur Microscopic SEDIMENT EXAMINED, Urine RBC 1-3, Ur Epithelial Cells RARE, Hyaline Casts RARE H, Urine Hemoglobin MOD H, Urine Glucose NEG 11/18/166: Lactic Acid 2.0 11/18/16 2326: Anion Gap 12, Estimated GFR 45 L, BUN/Creatinine Ratio 24.0, Glucose 110 H, Calcium 8.5, Total Bilirubin 0.4, AST 29, ALT 32, Alkaline Phosphatase 70, Creatine Kinase 115, Troponin I 0.07, C-Reactive Prot, Quant 1.3 H, Total Protein 6.3, Albumin 3.4 L, Globulin 2.9, Albumin/Globulin Ratio 1.2, CBC w Diff NO MAN DIFF REQ, RBC 4.78, MCV 92.3, MCH 30.4, RDW 13.8, MPV 9.4, Gran % 79.7 H, Lymphocytes % 8.3 L, Monocytes % 11.8 H, Eosinophils % 0, Basophils % 0.2, Absolute Granulocytes 7.9 H, Absolute Lymphocytes 0.8 L, Absolute Monocytes 1.2 H, Absolute Eosinophils 0, Absolute Basophils 0, PUBS MCHC 32.9 L, ESR Westergren 90 H, Lyme Disease Antibody Pending Microbiology 11/19 44 BLOOD: Blood Culture - RECD 11/20 39 NASOPHARYN: Influenza Virus A & B Rapid Smear - COMP 11/19 34 BLOOD: Blood Culture - RECD 11/19 2331 URINE ROUT: Legionella Antigen - COMP 11/19 2331 URINE ROUT: Streptococcus pneumoniae Antigen (M - COMP 11/19 2331 URINE ROUT: Urine Culture - RES Assessment/Plan Assessment: Mr. Crespo is a 81 yo white Male with a PMH of BPH, HTN, DAMARIS (on C-PAP at home), and gout who was BIBA yesterday (11/18/16) for altered mental status, hematuria, and fever. On admission his temperature was 104.2, HR-108, RR-18, BP-127/86, SpO2-94. Labs were WBC- 9.9, H/H- 14.5/44.2, BUN-36, Undraped Artist Model-1.5, Lactic acid was 2.0. He was admitted to general medicine floor for treatment and monitoring for possible tick borne illness such as lyme or anaplasmosis, Viral infection is also possible. Throat pain could be due to possible strep throat. ABG, Urinalysis, CXR, CT, and Micro was run on the patient with results below. CT Impression: Chest/abdomen/pelvis - No acute findings within the chest, abdomen, or pelvis. - Mild bibasilar atelectasis. No evidence of focal pneumonia. - Sigmoid diverticulosis without acute diverticulitis. - Bilateral renal cysts. Head - No acute intracranial abnormality. - Sinus disease including complete opacification of the left maxillary sinus that should be correlated for clinical signs of acute sinusitis. ABG: - pH= 7.42, pCO2= 38, pO2= 62, HCO3= 24, Carboxyhemoglobin= 0.5 CXR: -No acute abnormality of chest. UA: -Protein >= 300, Hyaline casts rare, hemoglobin moderate; culture negative after 1 day Micro: - negative for strep pneumo, legionella, and influenza A & B, Lyme titer was sent however he has previously had lyme IgM so a positive test could be due to IgG titer from previous exposure. Today he is still a bit confused. Was able to get a bit more information from him regarding his past medical history. He apparently has had bouts of hematuria before that he described as spots of blood in his urine, but each time he presented to the doctor for lab work it was always negative for pathology. His lungs sound rhoncherous on auscultation and he is still coughing but not producing any sputum. His vitals have normalized today temp- 97.5, HR- 50, RR-20 , BP-136/70, SpO2-95 % on 2L nasal cannula. His labs today show WBC- 10.7, H/H- 13.5/40.9, Bun-35, Undraped Artist Model-1.5 (baseline for him), lactic acid- 0.6. Current Medications Sig/Mark Start time Last Medication Dose Route Stop Time Status Admin Acetaminophen 0 .STK-MED ONE 11/18 2342 DC IV Acetaminophen 1,000 MG ONCE ONE 11/18 2300 DC 11/18 N/A 1 UNIT IV 11/18 2314 2340 Albuterol Sulfate 3 ML BID 11/19 1444 AC 11/19 INH 1446 Allopurinol 300 MG DAILY 11/19 1000 AC 11/19 PO 1008 Atenolol 25 MG DAILY 11/19 1000 AC 11/19 PO 1239 Azithromycin 500 MG Q24H 11/19 0415 DC Sodium Chloride 250 ML IV Azithromycin 500 MG ONCE ONE 11/19 0200 DC 11/19 Sodium Chloride 250 ML IV 11/19 0259 0214 Benzocaine/Menthol 1 CY Q2P PRN 11/19 1330 AC 11/19 PO 1436 Ceftriaxone Sodium 2,000 MG 11/19 2300 DC IV Ceftriaxone Sodium 1,000 MG 11/19 2300 UNVr IV Ceftriaxone Sodium 1,000 MG DAILY 11/19 1000 CAN IV Ceftriaxone Sodium 0 .STK-MED ONE 11/18 2356 DC .ROUTE Ceftriaxone Sodium 1,000 MG ONCE ONE 11/18 2300 DC 11/18 IV 11/18 2301 2354 Doxycycline Hyclate 100 MG BID 11/19 1630 UNVr PO Furosemide 20 MG BID 11/19 1000 CAN PO Guaifenesin 600 MG Q12 11/19 1000 AC 11/19 PO 1007 Hydralazine HCl 25 MG BID 11/19 1000 AC 11/19 PO 1238 Ketorolac 0 .STK-MED ONE 11/18 2342 DC Tromethamine .ROUTE Ketorolac 30 MG ONCE ONE 11/18 2300 DC 11/18 Tromethamine IV 11/18 2301 2340 Pravastatin Sodium 40 MG 1700 11/19 1700 AC PO Sodium Chloride 1,000 ML CONTINOUS INFUSION 11/19 0415 AC 11/19 IV 0552 Sodium Chloride 1,000 ML BOLUS ONE 11/19 0300 DC 11/19 IV 11/19 0359 0303 Sodium Chloride 1,000 ML BOLUS ONE 11/18 2315 DC 11/18 IV 11/19 0014 2340 Tamsulosin HCl 0.4 MG DAILY 11/19 1000 AC 11/19 PO 1008 Vancomycin HCl 1,500 MG 1400 11/19 1400 DC Sodium Chloride 250 ML IV Plan: Patient will be admitted to general medicine floor for treatment. Started on guaifenesin for his cough. Will continue to monitor and follow up with vitals, labs, and cultures. Problem List: 1. Fever of unknown origin with associated confusion- -currently afebrile, continue to monitor vitals and follow up with labs and cultures. -continue IV fluids and antibiotic treatment -ID consult ordered and will follow recommendations ID recommendations: 1. Would send serum for PCR for Anaplasma 2. Follow-up Lyme titer 3. Follow-up recent cultures 4. Rapid strep 5. Discontinue Vancomycin 6. Begin Doxycycline 100 mg po every 12 hours 7. Restart Ceftriaxone 1 g IV every 24 hours pending above -regular neurological checks 2. Hematuria- -follow up labs and cultures. Currently H/H is stable. 3. SINAN on CKD- -continue to follow BUN and Undraped Artist Model. Maintain IV fluid hydration for now. holding lasix 4. CAD/HTN- -continue anti-hypertensive medications (hydralazine, atenolol) and continue to monitor BP. -patient started on Pravastatin 40 mg daily PO 5. Acute sinusitis- -continue antibiotic treatment and monitor for change in condition. 6. BPH- -continue tamsulosin treatment 7. Gout- -continue allopurinol treatment DVT prophylaxis- ALPS Code Status- full
[2016-11-19 14:24] VITALS: BP 122/70
[2016-11-19 14:27] VITALS: BP 160/80
--- NOTE | 2016-11-19 16:15 | Cons- Infect Disease ---
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 On admission he was febrile to 104.2. Laboratory data revealed a white blood cell count of 10,000, platelet count 178,000, ESR 90, BUN/creatinine 36 and 1.5, with normal liver enzymes, ABG 7.42/38/62 on 2 L. Urinalysis 1-3 RBCs. Chest x-ray was negative. CT of the head revealed complete opacification of the left maxillary sinus with no acute intracranial abnormality. CT of the chest, abdomen and pelvis revealed mild bibasilar atelectasis. He was begun on Ceftriaxone and Azithromycin and was then changed to Vancomycin. He has defervesced and his mental status has apparently cleared today. At present he notes some throat discomfort with coughing and diffuse myalgias and arthralgias. He denies any headache, shortness of breath, or GI symptoms and has no dysuria. Allergies/Medications Allergies: Coded Allergies: NO KNOWN ALLERGIES (06/20/14) Home Med List: Allopurinol 300 MG TAB 1 TAB PO DAILY GOUT (Reported) Amlodipine (Norvasc 5MG Tab) 5 MG TABLET 1 TAB PO DAILY BP (Reported) Aspirin (Ecotrin) 81 MG ECT 1 TAB PO DAILY HEART (Reported) Atenolol 25 MG TABLET 1 TAB PO DAILY BP (Reported) Furosemide 20 MG TABLET 1 TAB PO BID DIURETIC (Reported) HYDRALAZINE HCL (Hydralazine HCl) 25 MG TABLET 1 TAB PO BID BP (Reported) Pravastatin Sodium 40 MG TABLET 1 TAB PO QPM CHOLESTEROL (Reported) TAMSULOSIN HCL (Tamsulosin Hydrochloride) 0.4 MG CAP.ER.24H 1 CAP PO DAILY PROSTATE (Reported) Valsartan 80 MG TABLET 1 TAB PO DAILY BP (Reported) Past History Travel History Traveled to [place] past 21 day No Medical History Neurological: NONE EENT: NONE Cardiovascular: hypertension, hyperlipidemia Respiratory: obstructive sleep apnea Gastrointestinal: constipation Hepatic: NONE Renal: benign prost hyperplasia Musculoskeletal: gout Psychiatric: NONE Endocrine: NONE Cancer(s): NONE 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 Family History Relations & Conditions If Any: Relation not specified for: *No pertinent family history Psychosocial History Where Do You Live? Home Services at Home: None Smoking Status: Former Smoker ETOH Use: occasional use Illicit Drug Use: denies illicit drug use Review of Systems Review of Systems All Other Systems: Reviewed and Negative Exam & Diagnostic Data Last 24 Hrs of Vital Signs/I&O Vital Signs Date Time Temp Pulse Resp B/P B/P Pulse O2 O2 Flow FiO2 Mean Ox Delivery Rate 11/19 1448 Nasal 2.0L Cannula 11/19 1427 98.8 79 20 160/80 93 Room Air 11/19 1424 97.5 61 20 122/70 97 Room Air 11/19 1239 97.5 84 20 160/90 11/19 1238 84 160/90 11/19 1008 97.5 50 20 136/70 11/19 0800 96 Nasal 2.0L Cannula 11/19 0657 97.5 50 20 136/70 95 Nasal 2.0L Cannula 11/19 0451 Nasal 2.0L Cannula 11/19 0325 98.9 73 18 130/73 98 Nasal 2.0L Cannula 11/19 0139 100.0 84 18 136/70 94 Nasal 2.0L Cannula 11/19 0041 100.0 11/19 0000 Room Air 11/18 2340 104.2 11/18 2242 104.2 108 18 127/86 94 Room Air Intake & Output 11/19 1600 11/19 0800 11/19 0000 Intake Total 1005 250 Output Total 600 350 Balance 1005 -350 -350 Intake, IV 525 250 Intake, Oral 480 Number 0 Bowel Movements Output, Urine 600 350 Patient 250 lb 250 lb Weight Weight Reported by Patient Reported by Patient Measurement Method Physical Exam Other Physical Findings: He is awake and alert in no acute distress. MAXIMUM TEMPERATURE 104.2. Skin reveals no rash. HEENT exam facial flushing; pharynx minimal erythema with no exudate; no sinus tenderness. Neck is supple with no adenopathy. Lungs scattered wheezes. Heart regular rhythm with no murmur. Abdomen is soft, nontender with positive bowel sounds. Back no CVA tenderness. Extremities no cyanosis, clubbing or edema. Neuro is without focality. Last 24 Hours of Lab Results: Laboratory Tests 11/19 11/19 11/19 11/19 0730 0730 0212 0019 Chemistry Sodium (137 - 145 mmol/L) 141 Potassium (3.5 - 5.1 mmol/L) 4.4 Chloride (98 - 107 mmol/L) 105 Carbon Dioxide (22 - 30 mmol/L) 28 Anion Gap (5 - 16) 8 BUN (9 - 20 mg/dL) 35 H Creatinine (0.7 - 1.2 mg/dL) 1.5 H Estimated GFR (>60 ml/min) 45 L BUN/Creatinine Ratio (7 - 25 %) 23.3 Lactic Acid (0.7 - 2.1 mmol/L) 0.6 L Troponin I (<0.11 ng/ml) 0.09 Hematology CBC w Diff NO MAN DIFF REQ WBC (4.8 - 10.8 /CUMM) 10.7 RBC (4.70 - 6.10 /CUMM) 4.43 L Hgb (14.0 - 18.0 G/DL) 13.5 L Hct (42 - 52 %) 40.9 L MCV (80.0 - 94.0 FL) 92.4 MCH (27.0 - 31.0 PG) 30.5 RDW (11.5 - 14.5 %) 14.4 Plt Count (130 - 400 /CUMM) 163 MPV (7.4 - 10.4 FL) 9.2 Gran % (42.2 - 75.2 %) 76.1 H Lymphocytes % (20.5 - 51.1 %) 9.5 L Monocytes % (1.7 - 9.3 %) 14.1 H Eosinophils % (0 - 5 %) 0.1 Basophils % (0.0 - 2.0 %) 0.2 Absolute Granulocytes (1.4 - 6.5 /CUMM) 8.2 H Absolute Lymphocytes (1.2 - 3.4 /CUMM) 1.0 L Absolute Monocytes (0.10 - 0.60 /CUMM) 1.5 H Absolute Eosinophils (0.0 - 0.7 /CUMM) 0 Absolute Basophils (0.0 - 0.2 /CUMM) 0 PUBS MCHC (33.0 - 37.0 G/DL) 33.0 Serology HIV 1&2 Ab Western Blot (NONREACTIVE) NONREACTIVE Virus Culture Pending 11/19 11/18 11/18 0010 2332 2326 Blood Gas pH (7.35 - 7.45 PH) 7.42 pCO2 (35 - 45 TORR) 38 pO2 (80 - 100 TORR) 62 L HCO3 (21 - 28 MEQ/L) 24 ABG O2 Sat (Measured) (>96.0 %) 91.0 L P-50 (Temp Corrected) N Carboxyhemoglobin (1.5 - 5.0 %) 0.5 L O2 Concentration % 2L O2 Delivery Method N/C Chemistry Lactic Acid (0.7 - 2.1 mmol/L) 2.0 Miscellaneous Phlebotomy Draw Site RIGHT RADIAL Toxicology Urine Opiates Screen (>2000 NG/ML) < 100.00 Methadone Screen (>300 NG/ML) < 40 Barbiturate Screen (>200 NG/ML) < 60 Ur Phencyclidine Scrn (>25 NG/ML) < 6.00 Amphetamines Screen (>1000 NG/ML) < 100 U Benzodiazepines Scrn (>200 NG/ML) < 85 Urine Cocaine Screen (>300 NG/ML) < 50 Urine Cannabis Screen (>50 NG/ML) < 5.00 Urines Urine Color (YEL,AMB,STR) YEL Urine Clarity (CLEAR) CLEAR Urine pH (5.0 - 8.0) 6.5 Ur Specific [place] (1.001 - 1.035) 1.020 Urine Protein (NEG,<30 MG/DL) >=300 H Urine Ketones (NEG) NEG Urine Nitrite (NEG) NEG Urine Bilirubin (NEG) NEG Urine Urobilinogen (0.1 - 1.0 EU/dl) 0.2 Ur Leukocyte Esterase (NEG) NEG Ur Microscopic SEDIMENT EXAMINED Urine RBC (0 - 5 /HPF) 1-3 Ur Epithelial Cells (NONE,FEW) RARE Hyaline Casts (0/LPF) RARE H Urine Hemoglobin (NEG) MOD H Urine Glucose (N MG/DL) NEG 05/26 2326 Chemistry Sodium (137 - 145 mmol/L) 137 Potassium (3.5 - 5.1 mmol/L) 4.1 Chloride (98 - 107 mmol/L) 101 Carbon Dioxide (22 - 30 mmol/L) 24 Anion Gap (5 - 16) 12 BUN (9 - 20 mg/dL) 36 H Creatinine (0.7 - 1.2 mg/dL) 1.5 H Estimated GFR (>60 ml/min) 45 L BUN/Creatinine Ratio (7 - 25 %) 24.0 Glucose (65 - 99 mg/dL) 110 H Calcium (8.4 - 10.2 mg/dL) 8.5 Total Bilirubin (0.2 - 1.3 mg/dL) 0.4 AST (17 - 59 U/L) 29 ALT (21 - 72 U/L) 32 Alkaline Phosphatase (< 127 U/L) 70 Creatine Kinase (55 - 170 U/L) 115 Troponin I (<0.11 ng/ml) 0.07 C-Reactive Prot, Quant (<1.0 mg/dL) 1.3 H Total Protein (6.3 - 8.2 g/dL) 6.3 Albumin (3.5 - 5.0 g/dL) 3.4 L Globulin (1.9 - 4.2 gm/dL) 2.9 Albumin/Globulin Ratio (1.1 - 2.2 %) 1.2 Hematology CBC w Diff NO MAN DIFF REQ WBC (4.8 - 10.8 /CUMM) 9.9 RBC (4.70 - 6.10 /CUMM) 4.78 Hgb (14.0 - 18.0 G/DL) 14.5 Hct (42 - 52 %) 44.2 MCV (80.0 - 94.0 FL) 92.3 MCH (27.0 - 31.0 PG) 30.4 RDW (11.5 - 14.5 %) 13.8 Plt Count (130 - 400 /CUMM) 178 MPV (7.4 - 10.4 FL) 9.4 Gran % (42.2 - 75.2 %) 79.7 H Lymphocytes % (20.5 - 51.1 %) 8.3 L Monocytes % (1.7 - 9.3 %) 11.8 H Eosinophils % (0 - 5 %) 0 Basophils % (0.0 - 2.0 %) 0.2 Absolute Granulocytes (1.4 - 6.5 /CUMM) 7.9 H Absolute Lymphocytes (1.2 - 3.4 /CUMM) 0.8 L Absolute Monocytes (0.10 - 0.60 /CUMM) 1.2 H Absolute Eosinophils (0.0 - 0.7 /CUMM) 0 Absolute Basophils (0.0 - 0.2 /CUMM) 0 PUBS MCHC (33.0 - 37.0 G/DL) 32.9 L ESR Westergren (0 - 10 MM) 90 H Serology Lyme Disease Antibody Pending Last 24 Hours of Negro Results: Blood cultures November 19 pending Urine culture November 18 negative Urine strep pneumo antigen and Legionella antigen November 18 negative Rapid flu swab November 19 negative Diagnostic Data Recent Imaging Findings: Chest x-ray, personally reviewed, negative. CT of the head revealed complete opacification of the left maxillary sinus with no acute intracranial abnormality. CT of the chest, abdomen and pelvis revealed mild bibasilar atelectasis. Assessment/Plan Assessment/Plan Impression: This is a 81-year-old man with a history of gout, BPH and obstructive sleep apnea admitted early this morning with the acute onset of fever and chills with arthralgias, myalgias, chest discomfort and hematuria, found to be febrile to 104 with a normal white blood cell count, negative CT of the chest, abdomen and pelvis and with cultures, so far, negative. He has no obvious focus of infection and, with a normal white blood cell count and the negative CT scans, a typical bacterial infection seems unlikely. A tickborne infection, however, should be considered, as he is active outdoors, and Lyme disease, as well as Anaplasma, though this usually causes leukopenia and/or thrombocytopenia, are certainly possible. A viral illness could also be considered. A noninfectious process, such as gout, is also possible, though there is no obvious inflammation. His does report some throat discomfort and, though there is minimal erythema and no exudate, streptococcal pharyngitis should be ruled out. The left maxillary sinus opacification is of unclear significance with no sinus tenderness. Of note he has had a positive Lyme titer in the past; therefore his Lyme titer may not be helpful in the diagnosis of Lyme disease now. He did receive a dose of Ceftriaxone, which would treat Lyme disease, and this could explain his defervescence. Suggestion: 1. Would send serum for PCR for Anaplasma 2. Follow-up Lyme titer 3. Follow-up recent cultures 4. Rapid strep 5. Discontinue Vancomycin 6. Begin Doxycycline 100 mg po every 12 hours 7. Restart Ceftriaxone 1 g IV every 24 hours pending above Consult Acknowledgment - Thank you for your consult request.
[2016-11-19 22:00] VITALS: BP 140/60
[2016-11-20 06:49] VITALS: BP 110/68
[2016-11-20 07:57] LABS: ABSOLUTE BASOPHIL COUNT 0 /CUMM (0.0-0.2); ABSOLUTE EOSINOPHIL COUNT 0 /CUMM (0.0-0.7); ABSOLUTE GRANULOCYTE CT 8.9 /CUMM (1.4-6.5); ABSOLUTE LYMPH COUNT 1.1 /CUMM (1.2-3.4); ABSOLUTE MONOCYTE COUNT 1.4 /CUMM (0.10-0.60); BASOPHIL % 0.1 % (0.0-2.0); EOSINOPHIL % 0 % (0-5); GRANULOCYTE % 78.4 % (42.2-75.2); HEMATOCRIT 40.9 % (42-52); MEAN CORPUSCULAR HGB 30.5 PG (27.0-31.0); MEAN CORPUSCULAR HGB CONC 32.7 G/DL (33.0-37.0); MEAN CORPUSCULAR VOLUME 93.1 FL (80.0-94.0); PLATELET COUNT 146 /CUMM (130-400); RBC DISTRIBUTION WIDTH 14.4 % (11.5-14.5)
--- NOTE | 2016-11-20 08:21 | PN- Housestaff ---
LADARIUS JEAN BAPTISTE 11/20/16 0820: Subjective Follow-up For: sepsis of unknown origin possible stroke Complaints: pain scale (0-10) Subjective: Patient was seen and examined this morning. He is alert, awake and oriented to time place and person. No acute events happened overnight. Patient reports gait instability. Also patient reports difficulty swallowing liquids. Patient reports chest tightness and sore throat. Denies any difficulty breathing, chest pain, racing of heart. denies any headache, weakness, sensory changes, numbness or tingling sensation Vitals stable. Afebrile. Review of Systems Constitutional: Reports: chills, fever, weakness. Denies: malaise, unexplained weight loss. Objective Last 24 Hrs of Vital Signs/I&O Vital Signs Date Time Temp Pulse Resp B/P B/P Pulse O2 O2 Flow FiO2 Mean Ox Delivery Rate 11/20 1147 100.4 11/20 0944 87 110/68 11/20 0943 87 110/68 11/20 0943 87 110/11/20 0926 92 Nasal 2.0L Cannula 11/20 0800 Nasal 2.0L Cannula 11/20 0649 99.5 87 20 110/68 91 Nasal 2.0L Cannula 11/20 0000 92 Nasal 2.0L Cannula 11/19 2200 99.9 83 20 140/60 92 Nasal 2.0L Cannula 11/19 2105 99.9 83 20 140/60 11/19 1650 102.0 11/19 1600 Nasal 2.0L Cannula 11/19 1448 Nasal 2.0L Cannula 11/19 1427 98.8 79 20 160/80 93 Room Air 11/19 1424 97.5 61 20 122/70 97 Room Air Intake & Output 11/20 1600 11/20 0800 11/20 0000 Intake Total 1000 840 Output Total 700 200 Balance 300 640 Intake, IV 600 600 Intake, Oral 400 240 Number 1 1 Bowel Movements Output, Urine 700 200 Physical Exam General Appearance: Alert, Oriented X3, Cooperative, No Acute Distress Skin: No Rashes, No Breakdown HEENT: Atraumatic, PERRLA, EOMI Neck: Supple, No JVD Lymphatic: Cervical nl Cardiovascular: Normal S1, Normal S2 Lungs: Normal Air Movement, rhonchi Abdomen: Normal Bowel Sounds, Soft, No Tenderness Neurological: Strength at 5/5 X4 Ext, Sensation Intact, Cranial Nerves 3-12 NL, ataxia gait instability Extremities: No Clubbing, No Cyanosis, No Edema Vascular: Normal Pulses Current Medications: Current Medications Sig/Mark Start time Last Medication Dose Route Stop Time Status Admin Acetaminophen 1,000 MG ONCE ONE 11/19 1645 DC 11/19 N/A 1 UNIT IV 11/19 1659 1650 Albuterol Sulfate 3 ML BID 11/19 1444 AC 11/20 INH 0925 Allopurinol 300 MG DAILY 11/19 1000 AC 11/20 PO 0943 Aspirin 81 MG DAILY 11/21 1000 AC PO Aspirin 325 MG ONCE ONE 11/20 1200 DC 11/20 PO 11/20 1201 1317 Atenolol 25 MG DAILY 11/19 1000 AC 11/20 PO 0943 Atorvastatin Calcium 80 MG 1700 11/20 1200 AC 11/20 PO 1317 Benzocaine/Menthol 1 CY Q2P PRN 11/19 1330 AC 11/19 PO 1436 Budesonide/ 2 PUF BID 11/20 1145 AC 11/20 Formoterol Fumarate INH 1316 Ceftriaxone Sodium 2,000 MG 2300 11/19 2300 DC IV Ceftriaxone Sodium 1,000 MG 2300 11/19 2300 AC 11/19 IV 2104 Doxycycline Hyclate 100 MG BID 11/19 1630 AC 11/20 PO 0943 Guaifenesin 600 MG Q12 11/19 1000 AC 11/20 PO 0943 Guaifenesin/Codeine 10 ML Q6P PRN 11/20 0115 AC 11/20 Phosphate PO 0118 Hydralazine HCl 25 MG BID 11/19 1000 AC 11/20 PO 0944 Polyethylene Glycol 17 GM DAILY PRN 11/20 1100 AC PO Pravastatin Sodium 40 MG 1700 11/19 1700 DC 11/19 PO 1629 Senna/Docusate Sodium 2 TAB DAILY PRN 11/20 1100 AC 11/20 PO 1317 Sodium Chloride 1,000 ML Q13H 11/20 0030 AC 11/20 IV 1101 Sodium Chloride 1,000 ML CONTINOUS INFUSION 11/19 0415 DC 11/19 IV 2105 Tamsulosin HCl 0.4 MG DAILY 11/19 1000 AC 11/20 PO 0943 Vancomycin HCl 1,500 MG 1400 11/19 1400 DC 11/19 Sodium Chloride 250 ML IV 1629 Last 24 Hrs of Lab/Negro Results Last 24 Hrs of Labs/Mics: Laboratory Tests 11/20/16 0620: Anion Gap 5, Estimated GFR 58 L, BUN/Creatinine Ratio 23.3, CBC w Diff NO MAN DIFF REQ, RBC 4.40 L, MCV 93.1, MCH 30.5, RDW 14.4, MPV 9.0, Gran % 78.4 H, Lymphocytes % 9.6 L, Monocytes % 11.9 H, Eosinophils % 0, Basophils % 0.1, Absolute Granulocytes 8.9 H, Absolute Lymphocytes 1.1 L, Absolute Monocytes 1.4 H, Absolute Eosinophils 0, Absolute Basophils 0, PUBS MCHC 32.7 L Assessment/Plan Assessment: Ths is a 81-year-old male with past medical history significant for hypertension , obstructive sleep apnea on CPAP, BPH, gout, CKD STAGE 3 presented to the [facility] emergency department with altered mental status, fever and hematuria. Also reported several days of myalgias, arthralgias, hematuria, chest discomfort and a sore throat with coughing. On admission his temperature was 104.2, HR-108, RR-18, BP-127/86, SpO2-94. Labs were WBC- 9.9, H/H- 14.5/44.2, BUN-36, [employer]-1.5, Lactic acid was 2.0. ABG: pH= 7.42, pCO2= 38, pO2= 62, HCO3= 24, Carboxyhemoglobin= 0.5ABG: UA: Protein >= 300, Hyaline casts rare, hemoglobin moderate; culture negative after 1 day Micro: negative for strep pneumo, legionella, and influenza A & B, Lyme titer was sent however he has previously had lyme IgM so a positive test could be due to IgG titer from previous exposure. CT Impression: Chest/abdomen/pelvis - No acute findings within the chest, abdomen, or pelvis. - Mild bibasilar atelectasis. No evidence of focal pneumonia. - Sigmoid diverticulosis without acute diverticulitis. - Bilateral renal cysts. Head - No acute intracranial abnormality. - Sinus disease including complete opacification of the left maxillary sinus that should be correlated for clinical signs of acute sinusitis. CXR: -No acute abnormality of chest. 1. Fever of unknown origin with associated SEPSIS and altered mental status Patient has MAXIMUM TEMPERATURE 104.2, heart rate 108. Blood pressure 127/86. No white count. Source of infection currently unknown. CT head scan does show complete opacification left maxillary sinus but patient has no tenderness to palpation in that area. The CT Chest/abdomen and pelvis was negative for possible sources. Pt has qSOFA of 1. If all routine workup is negative, considering sudden onset of fever, LE weakness and altered mental status unusual etiologies could be considered including tick borne or mosquito borne illnesses. Pt has no meningeal signs, nuchal rigidity, focal neurological deficits. He does report some throat discomfort and, though there is minimal erythema and no exudate, streptococcal pharyngitis should be ruled out. * Admitted to general medicine floor for further management * Monitor vitals closely every shift * Maintain oxygen saturation Above 90% * Provide supplemental oxygen if necessary * Monitor for fever, leukocytosis, any change in mental status * Every 4hrs neurovascular checks * IV Tylenol for fevers * Will follow up pancultures * Will follow-up Lyme titers * sent serum for PCR for Anaplasma * We'll check peripheral smear for morulae * Rapid strep throat -negative * Negative Lactic acid x 2 * Pt got 1 dose of ceftriaxone and azithromycin in ED * Started doxycycline 100 mg twice a day orally-day 2 * Started IV ceftriaxone thousand milligrams daily-day2 * ID on board * Will follow ID recommendations Possible acute stroke Patient family reported gait instability this morning. Patient also reports odynophagia for liquids. We have a concern for posterior cerebellar stroke. * Aspirin 325 mg once * Aspirin 81 mg daily * High-dose statin Lipitor 80 mg daily * Neurology was consulted. Recommended repeat CAT scan head without contrast as we do not have MRI over the weekend. * Repeat CAT scan head- No evidence of acute territorial infarct or hemorrhage. * Will follow-up CAT scan hadn't * Echocardiogram * Carotid Doppler ultrasound * Dr. STEVENS spoke with our radio tach to get mri however we couldn't get any MRI over the weekend * PT * OT * Speech and swallow evaluation * Lipid profile * HbA1c * Stat chest x-ray ruled out aspiration pneumonia 2. Hematuria- -follow up labs and cultures. Currently H/H is stable. 3. SINAN on CKD- -continue to follow BUN and [employer] Technical Assistant. Maintain IV fluid hydration for now. holding Lasix repeat bep in the am- cr- 1.2 4. HTN -continue anti-hypertensive medications (hydralazine, atenolol) and continue to monitor BP. HOLD VALSARTAN 5. POSSIBLE Acute sinusitis- CT Head showed opacification of left maxillary sinus * continue antibiotic treatment and monitor for change in condition. * Currently denies any sinus tenderness, headache 6. BPH- -continue tamsulosin treatment 7. Gout- -continue allopurinol treatment 8. HyperLipidemia Continue statins DVT prophylaxis- ALPS Code Status- full code Problem List: 1. Sepsis Pain Ratin Pain Location: n/a Pain Goal: Remain pain free Pain Plan: tylinol Tomorrow's Labs & Rationales: cbc bep Consulting Request: Consulting Specialty: Infectious Disease SIMRAN STEVENS 11/20/16 0936: Attending MD Review Statement Attending Statement Attending MD Statement: examined this patient, discuss w/resident/PA/MAIL OFFICER, agreed w/resident/PA/MAIL OFFICER, discussed with family, reviewed EMR data (avail), discussed with nursing, discussed with case mgmt, reviewed images, amended to note Attending Assessment/Plan: "This is a 80 yo male with PMH of BPH, HTN, DAMARIS on CPAP, gout who was brought in by ambulance for chief complaint of altered mental status, fever and hematuria. Patient is confused and is currently a poor historian. " ASSESSMENT 1. Fever with confusion 2. Toxic metabolic encephalopathy 3. Absent leukocytosis 4. Elevated ESR 5. SINAN on CKD 6. Hematuria with h/h stable resolved 7. Acute sinusitis 8. Possible tick borne illness 9. Gait instability started on Monday 10. Hip pain Confounding factor for gait instability. PLAN admit to inpatient medical services c/w IVF hydration, c/w abx as per ID, f/u labs, f/u cultures. ID appreicated, monitor neurochecks, fall precuations. MRI brain, asa, statin, consult pt/ot, speech/swallow, hbaic, lipid profile. monitor labs. gi/dvt prophalxis full code. plan of care d/wed patient, son , family bedside. (Son here providing better history) Last ECHO with [facility], PFT recently with air trapping but on obvious obstructive pattern, son is green building materials designer at [employer]. Neurologist physical education aide recommend repeat head CT stat. Plan of care updated to family bedside who is in agreement. Spoke to physical education aide electro mechanical technologist who said unavaiable for MRI/neither machine is available.
--- NOTE | 2016-11-20 10:03 | PN- Infect Dx ---
Subjective Subjective: MAXIMUM TEMPERATURE 102. He complains of odynophagia with liquids and chest discomfort with coughing. He notes mild dyspnea. His noted ataxia when he tries to walk. Objective Last 24 Hrs of Vital Signs/I&O Vital Signs Date Time Temp Pulse Resp B/P B/P Pulse O2 O2 Flow FiO2 Mean Ox Delivery Rate 11/20 0944 87 110/68 11/20 0943 87 110/68 11/20 0943 87 110/11/20 0926 92 Nasal 2.0L Cannula 11/20 0649 99.5 87 20 110/68 91 Nasal 2.0L Cannula 11/20 0000 92 Nasal 2.0L Cannula 11/19 2200 99.9 83 20 140/60 92 Nasal 2.0L Cannula 11/19 2105 99.9 83 20 140/60 11/19 1650 102.0 11/19 1600 Nasal 2.0L Cannula 11/19 1448 Nasal 2.0L Cannula 11/19 1427 98.8 79 20 160/80 93 Room Air 11/19 1424 97.5 61 20 122/70 97 Room Air 11/19 1239 97.5 84 20 160/90 11/19 1238 84 160/90 11/19 1008 97.5 50 20 136/70 Intake & Output 11/20 1600 11/20 0800 11/20 0000 Intake Total 1000 840 Output Total 700 200 Balance 300 640 Intake, IV 600 600 Intake, Oral 400 240 Number 1 Bowel Movements Output, Urine 700 200 Physical Exam Other Physical Findings: He is awake and alert, with no confusion, in no acute distress HEENT negative Neck is supple with no adenopathy Lungs bilateral rhonchi Heart regular rhythm with no murmur Extremities no cyanosis, clubbing or edema Results Last 24 Hours of Lab Results: Laboratory Tests 11/20 0620 Chemistry Sodium (137 - 145 mmol/L) 140 Potassium (3.5 - 5.1 mmol/L) 4.1 Chloride (98 - 107 mmol/L) 107 Carbon Dioxide (22 - 30 mmol/L) 27 Anion Gap (5 - 16) 5 BUN (9 - 20 mg/dL) 28 H Creatinine (0.7 - 1.2 mg/dL) 1.2 Estimated GFR (>60 ml/min) 58 L BUN/Creatinine Ratio (7 - 25 %) 23.3 Hematology CBC w Diff NO MAN DIFF REQ WBC (4.8 - 10.8 /CUMM) 11.4 H RBC (4.70 - 6.10 /CUMM) 4.40 L Hgb (14.0 - 18.0 G/DL) 13.4 L Hct (42 - 52 %) 40.9 L MCV (80.0 - 94.0 FL) 93.1 MCH (27.0 - 31.0 PG) 30.5 RDW (11.5 - 14.5 %) 14.4 Plt Count (130 - 400 /CUMM) 146 MPV (7.4 - 10.4 FL) 9.0 Gran % (42.2 - 75.2 %) 78.4 H Lymphocytes % (20.5 - 51.1 %) 9.6 L Monocytes % (1.7 - 9.3 %) 11.9 H Eosinophils % (0 - 5 %) 0 Basophils % (0.0 - 2.0 %) 0.1 Absolute Granulocytes (1.4 - 6.5 /CUMM) 8.9 H Absolute Lymphocytes (1.2 - 3.4 /CUMM) 1.1 L Absolute Monocytes (0.10 - 0.60 /CUMM) 1.4 H Absolute Eosinophils (0.0 - 0.7 /CUMM) 0 Absolute Basophils (0.0 - 0.2 /CUMM) 0 PUBS MCHC (33.0 - 37.0 G/DL) 32.7 L Last 24 Hours of Negro Results: Blood cultures 2 November 19 negative Quick strep November 19 negative, with culture revealing mixed chente Urine culture November 18 negative Assessment/Plan Impression: Fevers possibly secondary to a tickborne infection, such as Lyme or Anaplasma, though he has no leukopenia or thrombocytopenia to suggest the latter. His odynophagia suggests an esophagitis, most likely noninfectious, as he has no thrush to suggest Harika and HSV or CMV would be unlikely in this presumably immunocompetent host. His ataxia raises concern for a cerebellar process, possibly a stroke or, less likely, an infectious process and further evaluation will be necessary if this persists. He is on empiric treatment with Ceftriaxone and Doxycycline, which can be continued pending further evaluation. Suggestion: 1. Send serum for PCR for Anaplasma 2. Request Hematology lab to review the peripheral smear for morulae within the white blood cells 3. Consider Barium swallow if his odynophagia persists 4. Consider MRI of the head if his ataxia persists 5. Follow-up Lyme titer and recent cultures 6. Continue Doxycycline and Ceftriaxone pending above
--- NOTE | 2016-11-20 13:51 | CT SCAN REPORT ---
EXAMINATION: CT HEAD WITHOUT CONTRAST CLINICAL INFORMATION: Possible stroke. Ataxia. COMPARISON: CT scan of the head 11/19/2016. TECHNIQUE: Contiguous axial imaging was performed from the skull base to vertex without intravenous administration of contrast. DLP: 618.08 mGy-cm FINDINGS: There is no acute intracranial hemorrhage or abnormal extra-axial collection. No intracranial mass effect or midline shift. There are a few scattered nonspecific foci of hypoattenuation within the periventricular white matter most likely represent a chronic manifestation of small vessel ischemia. Mcclure-white matter differentiation is otherwise grossly preserved and there is no evidence of acute territorial infarct. The calvarium and skull base are intact. Mastoid air cells and middle ear cavities are well aerated. There is moderate to severe paranasal sinus disease primarily involving the maxillary sinuses. IMPRESSION: There are a few chronic small vessel ischemic changes within the periventricular white matter that remain largely unchanged when compared to the recent CT scan of the head from 11/19/2016. No evidence of acute territorial infarct or hemorrhage.
--- NOTE | 2016-11-20 13:55 | RADIOLOGY REPORT ---
EXAMINATION: XR CHEST CLINICAL INFORMATION: Aspiration pneumonia. Chest discomfort. COMPARISON: CT scan of the chest 11/19/2016. TECHNIQUE: 2 views of the chest were obtained. FINDINGS: There are ill-defined reticular markings within the lung bases that most likely represent a manifestation of subsegmental atelectasis. There is no overt consolidative disease or effusion. The cardiac silhouette is grossly enlarged and there is bilateral hilar vascular engorgement with cephalization of pulmonary vessels. Upper mediastinal contours are stable. No acute osseous finding. IMPRESSION: The cardiac silhouette is grossly enlarged and there is hilar vascular engorgement with cephalization of pulmonary vessels. No overt pulmonary consolidation.
--- NOTE | 2016-11-20 14:11 | ULTRASOUND REPORT ---
EXAMINATION: BILATERAL DUPLEX CAROTID ULTRASOUND CLINICAL INDICATION: Ataxia. Possible stroke. COMPARISON: CT of the head done earlier today. TECHNIQUE: TECHNIQUE: Real-time ultrasound and Doppler techniques (integrating B-mode 2D vascular images, Doppler spectral analysis and color flow Doppler imaging) were utilized to interrogate the extracranial carotid and vertebral arteries bilaterally. The degree of stenosis determined by criteria similar to NASCET. . FINDINGS: On the RIGHT, there is no significant plaque present at the carotid bifurcation. In the distal CCA, the peak systolic velocity is 87.4 cm/sec. In the proximal ICA, the peak systolic velocity is 111 cm/sec, and the end diastolic velocity is 34.6 cm/sec. The ICA/CCA ratio is 1.2. On the LEFT, small focal atherosclerotic plaques are present at the distal part of the common carotid and the carotid arterial bifurcation. In the distal CCA, the peak systolic velocity is 80 cm/sec. In the proximal ICA, the peak systolic velocity is 120 cm/sec, and the end diastolic velocity is 24.4 cm/sec. The ICA/CCA ratio is 1.6. The vertebral arteries show antegrade flow with normal waveforms bilaterally. IMPRESSION: 1. The right internal carotid artery shows no hemodynamically significant stenosis. 2. The left internal carotid artery shows no hemodynamically significant stenosis. 3. The Doppler velocities are consistent with less than 50% stenosis on either side. 4. Both vertebral arteries are patent and show antegrade flow.
[2016-11-20 14:15] LABS: WHITE BLOOD CELL COUNT 11.4 /CUMM (4.8-10.8)
[2016-11-20 14:19] VITALS: BP 120/80
--- NOTE | 2016-11-20 14:40 | Cons- Neurology ---
General Information and HPI Consulting Request Date of Consult: 11/20/16 Requested By: ZACK PECK,COMPA History of Present Illness: 81-year-old male admitted with a 1 day history of fever, altered mental status and generalized weakness. Initial temperature was as high as 104. He has defervesced, however, with antibiotic regimen of Rocephin, doxycycline and vancomycin. He has been seen by infectious disease who are considering a tickborne illness. The patient mentioned that he was unsteady on his feet yesterday and due to this , neurology was called for question of stroke syndrome. CAT scan of the head yesterday, repeated today, showed no evidence of CVA. Allergies/Medications Allergies: Coded Allergies: NO KNOWN ALLERGIES (06/20/14) Home Med List: Allopurinol 300 MG TAB 1 TAB PO DAILY GOUT (Reported) Amlodipine (Norvasc 5MG Tab) 5 MG TABLET 1 TAB PO DAILY BP (Reported) Aspirin (Ecotrin) 81 MG ECT 1 TAB PO DAILY HEART (Reported) Atenolol 25 MG TABLET 1 TAB PO DAILY BP (Reported) Furosemide 20 MG TABLET 1 TAB PO BID DIURETIC (Reported) HYDRALAZINE HCL (Hydralazine HCl) 25 MG TABLET 1 TAB PO BID BP (Reported) Pravastatin Sodium 40 MG TABLET 1 TAB PO QPM CHOLESTEROL (Reported) TAMSULOSIN HCL (Tamsulosin Hydrochloride) 0.4 MG CAP.ER.24H 1 CAP PO DAILY PROSTATE (Reported) Valsartan 80 MG TABLET 1 TAB PO DAILY BP (Reported) Review of Systems Review of Systems: Notable for fever, confusion, generalized weakness and hematuria. There has been no head trauma, diplopia, dysphagia, chest pain, hemoptysis, vertigo, joint inflammation or abnormal bleeding Past History Travel History Traveled to [place] past 21 day No Medical History Neurological: NONE EENT: NONE Cardiovascular: hypertension, hyperlipidemia Respiratory: obstructive sleep apnea Gastrointestinal: constipation Hepatic: NONE Renal: benign prost hyperplasia Musculoskeletal: gout Psychiatric: NONE Endocrine: NONE Cancer(s): NONE JEWELRY INTERNSHIP/Reproductive: NONE Other Medical Hx: Lyme disease 10 years prior to admission Surgical History Surgical History: L HIP REPLAC. Family History Relations & Conditions If Any: Relation not specified for: *No pertinent family history Psychosocial History Where Do You Live? Home Services at Home: None Smoking Status: Former Smoker ETOH Use: occasional use Illicit Drug Use: denies illicit drug use Exam & Diagnostic Data Vital Signs and I&O Vital Signs Date Time Temp Pulse Resp B/P B/P Pulse O2 O2 Flow FiO2 Mean Ox Delivery Rate 11/20 1419 100.3 100 20 120/80 92 Nasal 3.0L Cannula 11/20 1147 100.4 11/20 0944 87 110/68 11/20 0943 87 110/68 11/20 0943 87 110/68 11/20 0926 92 Nasal 2.0L Cannula 11/20 0800 Nasal 2.0L Cannula 11/20 0649 99.5 87 20 110/68 91 Nasal 2.0L Cannula 11/20 0000 92 Nasal 2.0L Cannula 11/19 2200 99.9 83 20 140/60 92 Nasal 2.0L Cannula 11/19 2105 99.9 83 20 140/60 11/19 1650 102.0 11/19 1600 Nasal 2.0L Cannula 11/19 1448 Nasal 2.0L Cannula Intake & Output 11/20 1600 11/20 0800 11/20 0000 Intake Total 1080 1000 840 Output Total 200 700 200 Balance 880 300 640 Intake, IV 600 600 600 Intake, Oral 480 400 240 Number 1 1 Bowel Movements Output, Urine 200 700 200 Elderly white male in no acute distress. The head was normocephalic and atraumatic. He was awake, alert and cooperative. Speech was fluent. Pupils were equal and reactive. Extraocular movements are full. There was no nystagmus. There was no field cut. Face was symmetric. Hearing was grossly normal. Tongue was midline. The motor examination showed no drift of the upper extremities. It was no focal or lateralizing weakness. Deep tendon reflexes were symmetric. Plantar responses were flexor. There was no ataxia on finger- to-nose testing or [id number] testing. Rapid alternating movements were performed adequately. Joint position sense was intact. The patient ambulated independently. Stance was narrow based. Assessment/Plan Assessment: The patient presents with generalized weakness and mild, subjective unsteadiness in the setting of fever and infection. There is no evidence of cerebellar, brainstem or labyrinthine dysfunction. There is no suspicion for stroke syndrome. Recommendations: I attempted to reassure the patient and his . I have also spoken to his son , an M.D. at [facility]. No further neurodiagnostic studies are contemplated. Please feel free to call with any further questions. Consult Acknowledgment - Thank you for your consult request.
--- NOTE | 2016-11-20 17:22 | ECHOCARDIOGRAM REPORT ---
QUINN CUMMINGS Age: 81 : 1935 Gender: M Exam Date: 11/20/2016 14:46 Exam Location: [address] [place] [address] A Ht (in): 68 Wt (lb): 249 BSA: 2.38 BP: 110 / 68 Ordering Physician: OLIVA JEAN BAPTISTE M Referring Physician: Kristel Vick MD Technologist: Tonya Diaz [facility] Room Number: 223-02 Indications: STROKE Rhythm: Sinus Technical Quality: Fair FINDINGS Left Ventricle Normal size left ventricle. No obvious regional wall motion abnormalities. Left ventricular wall thickness mildly increased. Normal left ventricular ejection fraction estimated at 55-60%. Right Ventricle Right ventricle not well visualized, grossly normal. Right Atrium Normal right atrial size. Left Atrium Mild to moderate left atrial dilatation. Mitral Valve Mitral valve thickened. Trace to mild mitral regurgitation. Aortic Valve Trileaflet aortic valve. Diffuse thickening (sclerosis) of the aortic valve cusps without reduced excursion. No aortic stenosis. No aortic regurgitation. Tricuspid Valve Tricuspid valve not well visualized, grossly normal. Mild tricuspid regurgitation. Right ventricular systolic pressure estimated at 40 mmHg. Pulmonic Valve Pulmonic valve not well visualized, grossly normal. Trace to mild pulmonic regurgitation. Pericardium Small pericardial effusion. Great Vessels Aortic root and proximal ascending aorta not well visualized, grossly normal. CONCLUSIONS 1. Mild aortic sclerosis is present with no anatomic evidence of valvular stenosis or insufficiency. THe peak gradient across the aortic valve is 22 mmHg. 2. Mitral leaflet thickening is present with minimal to mild mitral insufficiency and mild to moderate left atrial enlargement. 3. A very small pericardial effusion is present which is hemodynamically insignificant 4. The left ventricular chamber size and systolic function appear normal. Mild concentric hypertrophy is present with no resting wall motion abnormalities. 5. Minimal to mild tricuspid and pulmonic insfficiency are present with no evidence of significant pulmonary hypertension 6. Lipomatous hypertrophy of the atrial septum is noted. 7. No definite embolic sources were identified on this examination. If clinically indicated a EARLE would better exclude potential embolic sources. Kristel Vick M.D. (Electronically Signed) Final Date: 20 Nov 2016 17:21 MEASUREMENTS (Male / Female) Normal Values 2D ECHO LV Diastolic Diameter PLAX 5.6 cm 4.2 - 5.9 / 3.9 - 5.3 cm LV Systolic Diameter PLAX 3.4 cm 2.1 - 4.0 cm LV Fractional Shortening PLAX 39.3 % 25 - 46 % LV Ejection Fraction 2D Teich 69.1 % IVS Diastolic Thickness 1.3 cm LVPW Diastolic Thickness 1.3 cm LV Relative Wall Thickness 0.5 RV Internal Dim ED PLAX 3.4 cm 1.9 - 3.8 cm LVOT Diameter 2.4 cm Aortic Root Diameter 3.3 cm LA Systolic Diameter LX 4.6 cm 3.0 - 4.0 / 2.7 - 3.8 cm LA Volume 49.0 cm 18 - 58 / 22 - 52 cm Ascending Aorta Diameter 3.4 cm DOPPLER AV Peak Velocity 244.0 cm/s AV Peak Gradient 23.8 mmHg AV Mean Velocity 166.0 cm/s AV Mean Gradient 12.0 mmHg AV Velocity Time Integral 44.8 cm LVOT Peak Velocity 164.0 cm/s LVOT Peak Gradient 10.8 mmHg LVOT Mean Velocity 114.0 cm/s LVOT Mean Gradient 6.0 mmHg LVOT Velocity Time Integral 28.2 cm LVOT Stroke Volume 127.6 cm AV Area Cont Eq vti 2.8 cm AV Area Cont Eq pk 3.0 cm MV Peak Velocity 124.0 cm/s MV Peak Gradient 6.2 mmHg MV Mean Velocity 81.9 cm/s MV Mean Gradient 3.0 mmHg Mitral E Point Velocity 104.0 cm/s Mitral A Point Velocity 122.0 cm/s Mitral E to A Ratio 0.9 MV PHT Velocity 122.0 cm/s MV Deceleration Rooks 331.0 cm/s MV Pressure Half Time 110.6 ms MV Area PHT 2.0 cm MV Deceleration Time 298.0 ms TR Peak Velocity 297.0 cm/s TR Peak Gradient 35.3 mmHg Right Atrial Pressure 5.0 mmHg Pulmonary Artery Systolic Pressu 40.3 mmHg Right Ventricular Systolic Press 40.3 mmHg PV Peak Velocity 139.0 cm/s PV Peak Gradient 7.7 mmHg PV Mean Velocity 92.7 cm/s PV Mean Gradient 4.0 mmHg PV Velocity Time Integral 24.7 cm LV E' Lateral Velocity 8.4 cm/s Mitral E to LV E' Lateral Ratio 12.4 LV E' Septal Velocity 6.0 cm/s Mitral E to LV E' Septal Ratio 17.2
[2016-11-20 22:07] VITALS: BP 152/80
[2016-11-21 06:30] VITALS: BP 158/76
--- NOTE | 2016-11-21 08:45 | PN- Housestaff ---
NAI PECK,[facility] 11/21/16 0845: Subjective Follow-up For: Fever Altered mental status Gait instability Complaints: Constipation Subjective: Patient was seen and examined this morning. He is alert, awake and oriented to time place and person. Only complaint is some constipation. He denies fever, chills or body pains. His reports gait instability. Currently scheduled for physical and occupational therapy. He is anxious to go home. He reports difficulty swallowing liquids, but denies any difficulty breathing, chest pain, or palpitations. He denies any headache, weakness, sensory changes, numbness or tingling sensation. Review of Systems Constitutional: Reports: weakness (Weakness in Legs). Denies: chills, fever, malaise. EENTM: Denies: double vision, nasal congestion. Cardiovascular: Denies: chest pain, palpitations. Respiratory: Reports: cough. Denies: short of breath, sputum production, wheezing. Gastrointestinal: Reports: constipation. Denies: abdominal pain, diarrhea, vomiting. Genitourinary: Denies: dysuria. Musculoskeletal: Denies: back pain, joint pain. Neurological/Psychological: Reports: weakness. Denies: ataxia, confusion, numbness, tingling. Objective Last 24 Hrs of Vital Signs/I&O Vital Signs Date Time Temp Pulse Resp B/P B/P Pulse O2 O2 Flow FiO2 Mean Ox Delivery Rate 11/21 1008 92 Nasal 2.0L Cannula 11/21 0846 91 158/76 11/21 0845 91 158/76 11/21 0845 91 158/76 11/21 0800 Nasal 2.0L Cannula 11/21 0630 99.3 91 20 158/76 92 Nasal Cannula 11/21 0000 Nasal 2.0L Cannula 11/20 2207 100.1 100 20 152/80 93 11/20 2115 160/80 11/20 1800 100.6 11/20 1721 93 Nasal 2.0L Cannula 11/20 1600 Nasal 2.0L Cannula 11/20 1419 100.3 100 20 120/80 92 Nasal 3.0L Cannula Intake & Output 11/21 1600 11/21 0800 11/21 0000 Intake Total 400 Output Total 925 460 Balance -525 -460 Intake, Oral 400 Output, Urine 925 460 Physical Exam General Appearance: Alert, Oriented X3, Cooperative, No Acute Distress Skin: No Rashes Skin Temp/Moisture Exam: Warm/Dry Sepsis Skin Exam (color): Normal for Ethnicity HEENT: Atraumatic, PERRLA, EOMI, Mucous Membr. moist/pink, Miosis with pupils 2 mm bilaterally, reactive Neck: Supple, No JVD, No thryomegaly, +2 Carotid Pulse wo Bruit Lymphatic: Cervical nl Cardiovascular: Regular Rate, Normal S1, Normal S2, No Murmurs Lungs: Clear to Auscultation, Normal Air Movement Abdomen: Normal Bowel Sounds, Soft, No Tenderness, No Hepatospenomegaly, No Masses Neurological: Normal Speech, Strength at 5/5 X4 Ext, Normal Tone, Sensation Intact, Cranial Nerves 3-12 NL, Normal finger to nose and heel to roldan test., Gait with small steps using walker. Thigh extensor weakness in standing from sitting position, Normal reflexes. Babinski flexor Extremities: No Cyanosis, No Edema Current Medications: Current Medications Sig/Mark Start time Last Medication Dose Route Stop Time Status Admin Albuterol Sulfate 3 ML BID 11/19 1444 AC 11/21 INH 1006 Allopurinol 300 MG DAILY 11/19 1000 AC 11/21 PO 0842 Aspirin 81 MG DAILY 11/21 1000 AC 11/21 PO 0842 Atenolol 25 MG DAILY 11/19 1000 AC 11/21 PO 0846 Atorvastatin Calcium 80 MG 1700 11/20 1200 AC 11/20 PO 1750 Benzocaine/Menthol 1 CY Q2P PRN 11/19 1330 AC 11/20 PO 2116 Budesonide/ 2 PUF BID 11/20 1145 AC 11/21 Formoterol Fumarate INH 0842 Ceftriaxone Sodium 1,000 MG 2300 11/19 2300 AC 11/20 IV 2115 Doxycycline Hyclate 100 MG BID 11/19 1630 AC 11/21 PO 0842 Furosemide 20 MG 7:30 AM, & 4:30 PM 11/21 0945 AC 11/21 PO 1216 Guaifenesin 600 MG Q12 11/20 1400 CAN PO Guaifenesin 600 MG Q12 11/19 1000 AC 11/21 PO 0845 Guaifenesin/Codeine 10 ML Q6P PRN 11/20 0115 AC 11/20 Phosphate PO 0118 Hydralazine HCl 25 MG BID 11/19 1000 AC 11/21 PO 0845 Polyethylene Glycol 17 GM DAILY PRN 11/20 1100 AC PO Senna/Docusate Sodium 2 TAB DAILY PRN 11/20 1100 AC 11/20 PO 1317 Sodium Chloride 1,000 ML Q13H 11/20 0030 DC 11/20 IV 1101 Tamsulosin HCl 0.4 MG DAILY 11/19 1000 AC 11/21 PO 0845 Last 24 Hrs of Lab/Negro Results Last 24 Hrs of Labs/Mics: Laboratory Tests 11/21/16 0612: Anion Gap 6, Estimated GFR 53 L, BUN/Creatinine Ratio 18.5, CBC w Diff NO MAN DIFF REQ, RBC 4.16 L, MCV 93.1, MCH 30.0, RDW 14.1, MPV 9.4, Gran % 81.5 H, Lymphocytes % 9.1 L, Monocytes % 9.3, Eosinophils % 0.1, Basophils % 0 L, Absolute Granulocytes 8.7 H, Absolute Lymphocytes 1.0 L, Absolute Monocytes 1.0 H, Absolute Eosinophils 0, Absolute Basophils 0, PUBS MCHC 32.2 L Assessment/Plan Assessment: Renee is a 81-year-old male with past medical history significant for hypertension , obstructive sleep apnea on CPAP, BPH, gout, CKD STAGE 3 presented to the [facility] emergency department with altered mental status, fever and hematuria. Also reported several days of myalgias, arthralgias, hematuria, chest discomfort and a sore throat with coughing. On admission his temperature was 104.2, HR-108, RR-18, BP-127/86, SpO2-94. Labs were WBC- 9.9, H/H- 14.5/44.2, BUN-36, Historian Research Assistant-1.5, Lactic acid was 2.0. ABG: pH= 7.42, pCO2= 38, pO2= 62, HCO3= 24, Carboxyhemoglobin= 0.5ABG: UA: Protein >= 300, Hyaline casts rare, hemoglobin moderate; culture negative after 1 day Micro: negative for strep pneumo, legionella, and influenza A & B, Lyme titer was sent however he has previously had lyme IgM so a positive test could be due to IgG titer from previous exposure. CT Impression: Chest/abdomen/pelvis - No acute findings within the chest, abdomen, or pelvis. - Mild bibasilar atelectasis. No evidence of focal pneumonia. - Sigmoid diverticulosis without acute diverticulitis. - Bilateral renal cysts. Head - No acute intracranial abnormality. - Sinus disease including complete opacification of the left maxillary sinus that should be correlated for clinical signs of acute sinusitis. CXR: -No acute abnormality of chest. 1. Fever of unknown origin with altered mental status Pt has no meningeal signs, nuchal rigidity, focal neurological deficits. No concern for CVA after neurologist review. No need for MRI scan at this time Present symptoms are suspicious for a tick borne illness Awaiting peripheral blood smear review for any morulae Anaplasma PCR is a sendout and can only be ordered by calling the lab on weekdays-tomorrow His maximum temperature yesterday evening was 100.6 F -Monitor vitals closely every shift * Maintain oxygen saturation Above 90% * Provide supplemental oxygen if necessary * Monitor for fever, leukocytosis, any change in mental status * Every 4hrs neurovascular checks * IV Tylenol for fevers * Will follow up pancultures * Will follow-up Lyme titers * sent serum for PCR for Anaplasma * We'll check peripheral smear for morulae * Rapid strep throat -negative * Negative Lactic acid x 2 * Pt got 1 dose of ceftriaxone and azithromycin in ED * Started doxycycline 100 mg twice a day orally-day 2 * Started IV ceftriaxone thousand milligrams daily-day2 * ID on board * Will follow ID recommendations Dysphagia/odynophagia Patient was evaluated for CVA on account of family reported gait instability and odynophagia for liquids. Stat chest x-ray ruled out aspiration pneumonia Evaluation was negative for posterior cerebellar stroke. He received Aspirin 325 mg once. Continue aspirin 81 mg daily Continue High-dose statin Lipitor 80 mg daily Echocardiogram and Carotid Doppler ultrasound unremarkable Hold off on MRI scan at this point. Can revisit if symptoms persist or worsen -PT -OT -Speech and swallow evaluation -Lipid profile and HbA1c normal 2. Hematuria- -follow up labs and cultures. Currently H/H is stable. 3. CKD- -Patient has CKD with baseline creatinine around 1.3-1.4 -Restart his lasix home medication 20 mg BID -Continue to follow BUN and Historian Research Assistant. - IV fluids have been discontinued 4. HTN -continue anti-hypertensive medications (hydralazine, atenolol) and continue to monitor BP. Please confirm CMR if patient is on valsartan HOLD VALSARTAN for now 5. POSSIBLE Acute sinusitis- CT Head showed opacification of left maxillary sinus * Continue antibiotic treatment and monitor for change in condition. * Currently denies any sinus tenderness, headache 6. BPH- -continue tamsulosin treatment 7. Gout- -continue allopurinol treatment 8. HyperLipidemia Continue statins DVT prophylaxis- ALPS Code Status- full code Problem List: 1. Altered mental status 2. Fever of unknown origin (FUO) 3. HTN (hypertension) 4. DVT prophylaxis 5. Full code status Pain Ratin Pain Location: None Pain Goal: Remain pain free Pain Plan: Tylenol PRN Tomorrow's Labs & Rationales: BEP for creatinine and electrolytes DVT/Prophylaxis: mechanical Consulting Request: Consulting Specialty: Infectious Disease SIMRAN STEVENS 11/21/16 1107: Attending MD Review Statement Attending Statement Attending MD Statement: examined this patient, discuss w/resident/PA/OVERHEAD IRRIGATOR, agreed w/resident/PA/OVERHEAD IRRIGATOR, discussed with family, reviewed EMR data (avail), discussed with nursing, discussed with case mgmt, reviewed images, amended to note Attending Assessment/Plan: "This is a 80 yo male with PMH of BPH, HTN, DAMARIS on CPAP, gout who was brought in by ambulance for chief complaint of altered mental status, fever and hematuria. Patient is confused and is currently a poor historian. " ASSESSMENT 1. Fever with confusion 2. Toxic metabolic encephalopathy 3. Absent leukocytosis 4. Elevated ESR 5. SINAN on CKD 6. Hematuria with h/h stable resolved 7. Acute sinusitis 8. Possible tick borne illness 9. Gait instability started on Monday 10. Hip pain Confounding factor for gait instability. PLAN admit to inpatient medical services d/melonie IVF hydration, c/w abx as per ID, f/u labs, f/u cultures. ID appreicated, monitor neurochecks, fall precuations. Neurology consulted MRI brain, asa, statin, consult pt/ot, speech/swallow, hbaic , lipid profile. monitor labs. gi/dvt prophalxis full code. Plan of care d/wed patient, son, family bedside. (Son here providing better history) Last ECHO with [facility], PFT recently with air trapping but on obvious obstructive pattern, son is district wildlife manager at [employer]. Neurologist recommend no need of additional testing.
[2016-11-21 08:58] LABS: ABSOLUTE BASOPHIL COUNT 0 /CUMM (0.0-0.2); ABSOLUTE EOSINOPHIL COUNT 0 /CUMM (0.0-0.7); ABSOLUTE GRANULOCYTE CT 8.7 /CUMM (1.4-6.5); BASOPHIL % 0 % (0.0-2.0); EOSINOPHIL % 0.1 % (0-5); GRANULOCYTE % 81.5 % (42.2-75.2); HEMATOCRIT 38.7 % (42-52); MEAN CORPUSCULAR HGB CONC 32.2 G/DL (33.0-37.0); MEAN CORPUSCULAR VOLUME 93.1 FL (80.0-94.0); MEAN PLATELET VOLUME 9.4 FL (7.4-10.4); PLATELET COUNT 138 /CUMM (130-400); RBC DISTRIBUTION WIDTH 14.1 % (11.5-14.5); RED BLOOD CELL CT 4.16 /CUMM (4.70-6.10); WHITE BLOOD CELL COUNT 10.6 /CUMM (4.8-10.8)
[2016-11-21 15:48] VITALS: BP 150/80
[2016-11-21 22:23] VITALS: BP 142/70
[2016-11-22 06:40] VITALS: BP 130/70
--- NOTE | 2016-11-22 07:12 | PN- Housestaff ---
LADARIUS JEAN BAPTISTE 11/22/16 0712: Subjective Follow-up For: sepsis of unknown origin possible stroke Complaints: pain scale (0-10) Subjective: Patient was seen and examined this morning. He is alert, awake and oriented to time place and person. No acute events happened overnight. Patient reports gait instability improved since admission. Also patient denies any difficulty swallowing liquids. Denies any difficulty breathing, chest pain, racing of heart. denies any headache, weakness, sensory changes, numbness or tingling sensation denies any fever and chills Vitals stable. Afebrile. Heart rate 89, blood pressure 130/70 Review of Systems Constitutional: Denies: chills, diaphoresis, fever, malaise, weakness. Objective Last 24 Hrs of Vital Signs/I&O Vital Signs Date Time Temp Pulse Resp B/P B/P Pulse O2 O2 Flow FiO2 Mean Ox Delivery Rate 11/22 1428 98.9 80 20 118/80 93 Nasal 2.0L Cannula 11/22 1109 94 Nasal 2.0L Cannula 11/22 0838 89 130/70 11/22 0838 89 130/70 11/22 0838 89 130/70 11/22 0640 98.2 89 20 130/70 92 Nasal 2.0L Cannula 11/22 0000 93 Nasal 2.0L Cannula 11/21 2223 99.1 96 24 142/70 93 Nasal 2.0L Cannula Intake & Output 11/22 1600 11/22 0800 11/22 0000 Intake Total 130 250 Output Total 450 Balance -320 250 Intake, IV 10 10 Intake, Oral 120 240 Number 1 Bowel Movements Output, Urine 450 Physical Exam General Appearance: Alert, Oriented X3, Cooperative, No Acute Distress Skin: No Rashes, No Breakdown HEENT: Atraumatic, PERRLA Neck: Supple, No JVD Lymphatic: Cervical nl Cardiovascular: Normal S1, Normal S2 Lungs: Normal Air Movement Abdomen: Normal Bowel Sounds, Soft, No Tenderness Neurological: Strength at 5/5 X4 Ext, Normal Tone, Sensation Intact, Cranial Nerves 3-12 NL Extremities: No Clubbing, No Cyanosis, No Edema Vascular: Normal Pulses, Pulses Symmetrical Current Medications: Current Medications Sig/Mark Start time Last Medication Dose Route Stop Time Status Admin Albuterol Sulfate 3 ML BID 11/19 1444 DCD 11/22 INH 1106 Allopurinol 300 MG DAILY 11/19 1000 DCD 11/22 PO 0838 Aspirin 81 MG DAILY 11/21 1000 DCD 11/22 PO 0838 Atenolol 25 MG DAILY 11/19 1000 DCD 11/22 PO 0838 Atorvastatin Calcium 80 MG 1700 11/20 1200 DCD 11/21 PO 1638 Benzocaine/Menthol 1 CY Q2P PRN 11/19 1330 DCD 11/20 PO 2116 Budesonide/ 2 PUF BID 11/20 1145 DCD 11/22 Formoterol Fumarate INH 0839 Ceftriaxone Sodium 1,000 MG 2300 11/19 2300 DC 11/21 IV 205 Doxycycline Hyclate 100 MG BID 11/19 1630 DCD 11/22 PO 0838 Furosemide 20 MG 7:30 AM, & 4:30 PM 11/21 0945 DCD 11/22 PO 0838 Guaifenesin 600 MG Q12 11/19 1000 DCD 11/22 PO 0838 Guaifenesin/Codeine 10 ML Q6P PRN 11/20 0115 DCD 11/21 Phosphate PO 2051 Hydralazine HCl 25 MG BID 11/19 1000 DCD 11/22 PO 0838 Lactobacillus 1 CAP DAILY 11/22 1000 DCD 11/22 Acidophilus PO 1300 Patient Medication 1 ED .STK-MED ONE 11/22 1351 [facility] ED 11/22 1352 Polyethylene Glycol 17 GM DAILY PRN 11/20 1100 DCD 11/21 PO 1638 Senna/Docusate Sodium 2 TAB DAILY PRN 11/20 1100 DCD 11/21 PO 1639 Tamsulosin HCl 0.4 MG DAILY 11/19 1000 DCD 11/22 PO 0838 Last 24 Hrs of Lab/Negro Results Last 24 Hrs of Labs/Mics: Laboratory Tests 11/22/16 0718: Anion Gap 5, Estimated GFR 49 L, BUN/Creatinine Ratio 21.4 Assessment/Plan Assessment: Ths is a 81-year-old male with past medical history significant for hypertension , obstructive sleep apnea on CPAP, BPH, gout, CKD STAGE 3 presented to the [facility] emergency department with altered mental status, fever and hematuria. Also reported several days of myalgias, arthralgias, hematuria, chest discomfort and a sore throat with coughing. On admission his temperature was 104.2, HR-108, RR-18, BP-127/86, SpO2-94. Labs were WBC- 9.9, H/H- 14.5/44.2, BUN-36, Drinking Water Technician-1.5, Lactic acid was 2.0. ABG: pH= 7.42, pCO2= 38, pO2= 62, HCO3= 24, Carboxyhemoglobin= 0.5ABG: UA: Protein >= 300, Hyaline casts rare, hemoglobin moderate; culture negative after 1 day Micro: negative for strep pneumo, legionella, and influenza A & B, Lyme titer was sent however he has previously had lyme IgM so a positive test could be due to IgG titer from previous exposure. CT Impression: Chest/abdomen/pelvis - No acute findings within the chest, abdomen, or pelvis. - Mild bibasilar atelectasis. No evidence of focal pneumonia. - Sigmoid diverticulosis without acute diverticulitis. - Bilateral renal cysts. Head - No acute intracranial abnormality. - Sinus disease including complete opacification of the left maxillary sinus that should be correlated for clinical signs of acute sinusitis. CXR: -No acute abnormality of chest. 1. Fever of unknown origin with altered mental status Patient has MAXIMUM TEMPERATURE 104.2, heart rate 108. Blood pressure 127/86. No white count. Source of infection currently unknown. CT head scan does show complete opacification left maxillary sinus but patient has no tenderness to palpation in that area. The CT Chest/abdomen and pelvis was negative for possible sources. Pt has qSOFA of 1. If all routine workup is negative, considering sudden onset of fever, LE weakness and altered mental status unusual etiologies could be considered including tick borne or mosquito borne illnesses. Pt has no meningeal signs, nuchal rigidity, focal neurological deficits. He does report some throat discomfort and, though there is minimal erythema and no exudate, streptococcal pharyngitis should be ruled out. Pt has no meningeal signs, nuchal rigidity, focal neurological deficits. No concern for CVA after neurologist review. No need for MRI scan at this time * Present symptoms are suspicious for a tick borne illness * Monitor vitals closely every shift * Maintain oxygen saturation Above 90% * Provide supplemental oxygen if necessary * Monitor for fever, leukocytosis, any change in mental status * Every 4hrs neurovascular checks * IV Tylenol for fevers * Will follow up pancultures * Will follow-up Lyme titers * sent serum for PCR for Anaplasma * We'll check peripheral smear for morulae * Rapid strep throat -negative * Negative Lactic acid x 2 * Pt got 1 dose of ceftriaxone and azithromycin in ED * Started doxycycline 100 mg twice a day orally-day 3 * Started IV ceftriaxone thousand milligrams daily-day2, discontinued today * ID on board * Will follow ID recommendations * Planning to discharge him today on doxycycline 100 mg twice a day for 7 more days treating empirically for tickborne illness-lyme/ anaplasmosis- Dysphagia/odynophagia Patient was evaluated for CVA on account of family reported gait instability and odynophagia for liquids. Stat chest x-ray ruled out aspiration pneumonia Evaluation was negative for posterior cerebellar stroke. stat CAT scan head showed no evidence of acute infarct or hemorrhage. * He received Aspirin 325 mg once. Continue aspirin 81 mg daily * Continue High-dose statin Lipitor 80 mg daily * Echocardiogram and Carotid Doppler ultrasound unremarkable * Hold off on MRI scan at this point. Can revisit if symptoms persist or worsen * PT * OT * Speech and swallow evaluation * Lipid profile and HbA1c normal 2. Hematuria- -follow up labs and cultures. Currently H/H is stable. 3. CKD- -Patient has CKD with baseline creatinine around 1.3-1.4 -Restart his lasix home medication 20 mg BID -Continue to follow BUN and Drinking Water Technician. - IV fluids have been discontinued 4. HTN -continue anti-hypertensive medications (hydralazine, atenolol) and continue to monitor BP. 5. POSSIBLE Acute sinusitis- CT Head showed opacification of left maxillary sinus * Continue antibiotic treatment and monitor for change in condition. * Currently denies any sinus tenderness, headache 6. BPH- -continue tamsulosin treatment 7. Gout- -continue allopurinol treatment 8. HyperLipidemia Continue statins DVT prophylaxis- ALPS Code Status- full code Problem List: 1. Fever of unknown origin (FUO) 2. Altered mental status 3. Sepsis Pain Ratin Pain Location: none Pain Goal: Remain pain free Pain Plan: tylinol Tomorrow's Labs & Rationales: none Consulting Request: Consulting Specialty: Infectious Disease SIMRAN STEVENS 11/22/16 1132: Attending MD Review Statement Attending Statement Attending MD Statement: examined this patient, discuss w/resident/PA/BALL MILL MIXER, agreed w/resident/PA/BALL MILL MIXER, discussed with family, reviewed EMR data (avail), discussed with nursing, discussed with case mgmt, reviewed images, amended to note Attending Assessment/Plan: ASSESSMENT 1. Fever with confusion resolving 2. Toxic metabolic encephalopathy resolved 3. Absent leukocytosis 4. Elevated ESR 5. SINAN on CKD improved 6. Hematuria with h/h stable resolved 7. Acute sinusitis 8. Possible tick borne illness 9. Gait instability improving 10. Hip pain Confounding factor for gait instability. 11 DAMARIS on cpap at night PLAN admit to inpatient medical services c/w abx as per ID, f/u labs, f/u cultures. change to PO at d/c. ID appreicated, monitor neurochecks, fall precuations. Neurology consulted asa, statin f/u pt/ot, speech/swallow. monitor labs. gi/dvt prophalxis full code. Plan of care d/mon patient, son, family bedside. (Son here providing better history) Last ECHO with [facility], PFT recently with air trapping but on obvious obstructive pattern, son is actuarial assistant at [employer]. Neurologist recommend no need of additional testing. anticipate d/c soon. f/u o/p PCP in 3-5 days of dc.
--- NOTE | 2016-11-22 08:31 | PN- Student ---
Subjective Subjective: Mr. Crespo seems well this morning. He reports no difficulty swallowing today, and his gait this morning looked normal. He did complain of some left hip pain that he said got better as he walked. He denies any headache, vision or balance disturbances, N/V/D, fever or chills, chest pain or palpitations, breathing difficulty, abdominal pain, or urinary or bowel disturbances. He also stated that his chest no longer hurt when he coughed. Objective Objective: Vital Signs Date Time Temp Pulse Resp B/P B/P Pulse O2 O2 Flow FiO2 Mean Ox Delivery Rate 11/22 0640 98.2 89 20 130/70 92 Nasal 2.0L Cannula 11/22 0000 93 Nasal 2.0L Cannula 11/21 2223 99.1 96 24 142/70 93 Nasal 2.0L Cannula 11/21 1548 99.3 100 20 150/80 94 11/21 1008 92 Nasal 2.0L Cannula 11/21 0846 91 158/76 11/21 0845 91 158/76 11/21 0845 91 158/76 Intake & Output 11/22 1600 11/22 0800 11/22 0000 Intake Total 130 250 Output Total 450 Balance -320 250 Intake, IV 10 10 Intake, Oral 120 240 Number 1 Bowel Movements Output, Urine 450 PE: General- alert and oriented x 3, cooperative, NAD HEENT- atraumatic, PERRLA, membranes moist and pink Neck- supple, no lymphadenopathy or thyromegaly, trachea is midline CV- S1 and S2 appreciated, no murmurs or rubs heard Chest- equal chest rise bilaterally, slight expiratory wheezing heard throughout on auscultation, good air movement otherwise with no distress Abdomen- soft, non-tender to palpation Extremities- no edema, 5/5 strength x 4 extremities, sensation intact Skin- no lesions or rashes noted, warm and well perfused Results Results: Laboratory Tests 11/22/16 0718: Anion Gap 5, Estimated GFR 49 L, BUN/Creatinine Ratio 21.4 11/21/16 0612: Anion Gap 6, Estimated GFR 53 L, BUN/Creatinine Ratio 18.5, CBC w Diff NO MAN DIFF REQ, RBC 4.16 L, MCV 93.1, MCH 30.0, RDW 14.1, MPV 9.4, Gran % 81.5 H, Lymphocytes % 9.1 L, Monocytes % 9.3, Eosinophils % 0.1, Basophils % 0 L, Absolute Granulocytes 8.7 H, Absolute Lymphocytes 1.0 L, Absolute Monocytes 1.0 H, Absolute Eosinophils 0, Absolute Basophils 0, PUBS MCHC 32.2 L 11/20/16 1200: Hemoglobin A1c 5.8, Triglycerides 119, Cholesterol 175, LDL Cholesterol, Calc 86 , HDL Cholesterol 66 H, Cholesterol/HDL Ratio 3 11/20/16 0620: Anion Gap 5, Estimated GFR 58 L, BUN/Creatinine Ratio 23.3, CBC w Diff NO MAN DIFF REQ, RBC 4.40 L, MCV 93.1, MCH 30.5, RDW 14.4, MPV 9.0, Gran % 78.4 H, Lymphocytes % 9.6 L, Monocytes % 11.9 H, Eosinophils % 0, Basophils % 0.1, Absolute Granulocytes 8.9 H, Absolute Lymphocytes 1.1 L, Absolute Monocytes 1.4 H, Absolute Eosinophils 0, Absolute Basophils 0, PUBS MCHC 32.7 L Assessment/Plan Assessment: Mr. Crespo is a 81 yo white Male with a PMH of BPH, HTN, DAMARIS (on C-PAP at home), and gout who was BIBA yesterday (11/18/16) for altered mental status, hematuria, and fever. On admission his temperature was 104.2, HR-108, RR-18, BP-127/86, SpO2-94. Labs were WBC- 9.9, H/H- 14.5/44.2, BUN-36, Jeweler Apprentice-1.5, Lactic acid was 2.0. He was admitted to general medicine floor for treatment and monitoring for possible tick borne illness such as lyme or anaplasmosis, Viral infection is also possible. Throat pain could be due to possible strep throat. ABG, Urinalysis, CXR, CT, and Micro was run on the patient with results below. CT Impression: Chest/abdomen/pelvis - No acute findings within the chest, abdomen, or pelvis. - Mild bibasilar atelectasis. No evidence of focal pneumonia. - Sigmoid diverticulosis without acute diverticulitis. - Bilateral renal cysts. Head - No acute intracranial abnormality. - Sinus disease including complete opacification of the left maxillary sinus that should be correlated for clinical signs of acute sinusitis. ABG: - pH= 7.42, pCO2= 38, pO2= 62, HCO3= 24, Carboxyhemoglobin= 0.5 CXR: -No acute abnormality of chest. UA: -Protein >= 300, Hyaline casts rare, hemoglobin moderate; culture negative after 1 day Micro: - negative for strep pneumo, legionella, and influenza A & B, Lyme titer was sent however he has previously had lyme IgM so a positive test could be due to IgG titer from previous exposure. Today patient seems to feel much better. He has not had a fever recently and his vitals remain stable. (temp- 98.2, HR- 89, RR- 20, BP- 130/70, SpO2- 92% on 2L nasal cannula) over the weekend he had some gait abormalities and dysphagia/ odynophagia with liquids which prompted a workup for CVA. CXR, echo, and carotid doppler were all negative for stroke, MRA was scheduled for today along with modified barium swallow, they both have since been cancelled due to resolution of symptoms. He is currently NIH stroke scale of 0. He had slight expiratory wheezes on auscultation but no distress. Current Medications Sig/Mark Start time Last Medication Dose Route Stop Time Status Admin Albuterol Sulfate 3 ML BID 11/19 1444 AC 11/22 INH 1106 Allopurinol 300 MG DAILY 11/19 1000 AC 11/22 PO 0838 Aspirin 81 MG DAILY 11/21 1000 AC 11/22 PO 0838 Atenolol 25 MG DAILY 11/19 1000 AC 11/22 PO 0838 Atorvastatin Calcium 80 MG 1700 11/20 1200 AC 11/21 PO 1638 Benzocaine/Menthol 1 CY Q2P PRN 11/19 1330 AC 11/20 PO 2116 Budesonide/ 2 PUF BID 11/20 1145 AC 11/22 Formoterol Fumarate INH 0839 Ceftriaxone Sodium 1,000 MG 2300 11/19 2300 DC 11/21 IV 2051 Doxycycline Hyclate 100 MG BID 11/19 1630 AC 11/22 PO 0838 Furosemide 20 MG 7:30 AM, & 4:30 PM 11/21 0945 AC 11/22 PO 0838 Guaifenesin 600 MG Q12 11/19 1000 AC 11/22 PO 0838 Guaifenesin/Codeine 10 ML Q6P PRN 11/20 0115 AC 11/21 Phosphate PO 2051 Hydralazine HCl 25 MG BID 11/19 1000 AC 11/22 PO 0838 Lactobacillus 1 CAP DAILY 11/22 1000 AC 11/22 Acidophilus PO 1300 Patient Medication 1 ED .STK-MED ONE 11/22 1351 DC Teaching ED 11/22 1352 Polyethylene Glycol 17 GM DAILY PRN 11/20 1100 AC 11/21 PO 1638 Senna/Docusate Sodium 2 TAB DAILY PRN 11/20 1100 AC 11/21 PO 1639 Tamsulosin HCl 0.4 MG DAILY 11/19 1000 AC 11/22 PO 0838 Plan: Patient was restarted on home lasix therapy of 20 mg BID. Plan to discharge this afternoon with doxycycline x 7 days. Problem List: 1. Fever of unknown origin with associated confusion- -currently afebrile, continue to monitor vitals and follow up with labs and cultures. -continue antibiotic treatment -ID consult ordered and will follow recommendations ID recommendations: 1. Send serum for PCR for Anaplasma 2. Request Hematology lab to review the peripheral smear for morulae within the white blood cells 3. Follow-up Lyme titer (results showed level of 0.21) 4. Discontinue Ceftriaxone 5. Continue Doxycycline to complete a 10 day course 2. Hematuria- -follow up labs and cultures. Currently H/H is stable. 3. SINAN on CKD- -continue to follow BUN and Jeweler Apprentice. Maintain IV fluid hydration for now. lasix restarted 4. CAD/HTN- -continue anti-hypertensive medications (hydralazine, atenolol) and continue to monitor BP. -patient started on Pravastatin 40 mg daily PO 5. Acute sinusitis- -continue antibiotic treatment and monitor for change in condition. 6. BPH- -continue tamsulosin treatment 7. Gout- -continue allopurinol treatment DVT prophylaxis- ALPS Code Status- full Code Status- full
[2016-11-22] MEDS ORDERED: DOXYCYCLINE HY100 M2 PO (11:27)
[2016-11-22] MEDS ORDERED: GUAIFENESIN ER600 MG PO (11:27)
--- NOTE | 2016-11-22 11:31 | Patient Discharge Instructions ---
Discharge Instructions General Discharge Information You were seen/treated for: SEPSIS AND ALTERED MENTAL STATUS POSSIBLE TICK BORNE ILLNESS You had these procedures: NONE Special Instructions: PLEASE F/U PCP IN 1-2 WEEKS Diet Continue normal diet: Yes Activity Full Activity/No Limits: Yes Acute Coronary Syndrome Inclusion Criteria At DC or during hospital stay patient has or had the following: ACS DIAGNOSIS No Discharge Core Measures Meds if any: Prescribed or Continued at Discharge Meds if any: NOT Prescribed or Continued at Discharge Congestive Heart Failure Inclusion Criteria At DC or during hospital stay patient has or had the following: CHF DIAGNOSIS No Discharge Core Measures Meds if any: Prescribed or Continued at Discharge Meds if any: NOT Prescribed or Continued at Discharge Cerebrovascular accident Inclusion Criteria At DC or during hospital stay patient has or had the following: CVA/TIA Diagnosis No Discharge Core Measures Meds if any: Prescribed or Continued at Discharge Meds if any: NOT Prescribed or Continued at Discharge Venous thromboembolism Inclusion Criteria VTE Diagnosis No VTE Type NONE VTE Confirmed by (Test) NONE Discharge Core Measures - Per Current guidelines, there needs to be overlap - treatment for the first 5 days of Warfarin therapy. - If discharged on Warfarin prior to 5 days of - overlap therapy, the patient will need to be - assessed for post discharge needs including - *Post discharge parental anticoagulation - *Warfarin and/or parental anticoagulation education - *Follow up date to check INR post discharge At least 5 days overlap therapy as Inpatient No Meds if any: Prescribed or Continued at Discharge Note: Overlap Therapy is Warfarin and Anticoagulant Meds if any: NOT Prescribed or Continued at Discharge
--- NOTE | 2016-11-22 11:40 | PN- Infect Dx ---
Subjective Subjective: Afebrile. He feels well with no further odynophagia or chest discomfort. He does note an occasional cough but denies any shortness of breath. Objective Last 24 Hrs of Vital Signs/I&O Vital Signs Date Time Temp Pulse Resp B/P B/P Pulse O2 O2 Flow FiO2 Mean Ox Delivery Rate 11/22 1109 94 Nasal 2.0L Cannula 11/22 0838 89 130/70 11/22 0838 89 130/70 11/22 0838 89 130/70 11/22 0640 98.2 89 20 130/70 92 Nasal 2.0L Cannula 11/22 0000 93 Nasal 2.0L Cannula 11/21 2223 99.1 96 24 142/70 93 Nasal 2.0L Cannula 11/21 1548 99.3 100 20 150/80 94 Intake & Output 11/22 1600 11/22 0800 11/22 0000 Intake Total 130 250 Output Total 450 Balance -320 250 Intake, IV 10 10 Intake, Oral 120 240 Number 1 Bowel Movements Output, Urine 450 Physical Exam Other Physical Findings: He appears comfortable in no acute distress, ambulating in the hallways HEENT negative Lungs scattered rhonchi bilaterally Heart regular rhythm with no murmur Results Last 24 Hours of Lab Results: Laboratory Tests 11/22 0718 Chemistry Sodium (137 - 145 mmol/L) 140 Potassium (3.5 - 5.1 mmol/L) 4.4 Chloride (98 - 107 mmol/L) 105 Carbon Dioxide (22 - 30 mmol/L) 30 Anion Gap (5 - 16) 5 BUN (9 - 20 mg/dL) 30 H Creatinine (0.7 - 1.2 mg/dL) 1.4 H Estimated GFR (>60 ml/min) 49 L BUN/Creatinine Ratio (7 - 25 %) 21.4 Last 24 Hours of Negro Results: Blood cultures November 19 negative Recent Imaging Studies: CT of the head November 20 reveals no acute process Chest x-ray November 20, personally reviewed, no overt consolidation Assessment/Plan Impression: Improved with resolution of his fevers on empiric treatment with Ceftriaxone and Doxycycline now Day 4 of treatment for a possible tickborne infection, such as Lyme or Anaplasma, though he has no leukopenia or thrombocytopenia to suggest the latter. He has had a positive Lyme IgM in the past, indicating the possibility of previous Lyme disease, in which case his Lyme titer now may not be helpful as, once positive, the Lyme titer will stay positive indefinitely. His cultures have remained negative and repeat chest x-ray is negative for pneumonia. Suggestion: 1. Send serum for PCR for Anaplasma 2. Request Hematology lab to review the peripheral smear for morulae within the white blood cells 3. Follow-up Lyme titer 4. Discontinue Ceftriaxone 5. Continue Doxycycline to complete a 10 day course
[2016-11-22 14:28] VITALS: BP 118/80
--- NOTE | 2016-11-22 16:17 | Discharge Summary ---
Visit Information Visit Dates Admission Date: 11/19/16 Discharge Date: 11/22/16 Hospital Course Course Attending Physician: SIMRAN STEVENS MD Primary Care Physician: JOHN PECK,DREW Arteaga Consulting Request: 1 Consulting Specialty: Neurology Consulting Request: 2 Consulting Specialty: Infectious Disease Hospital Course: Renee is a 81-year-old male with past medical history significant for hypertension , obstructive sleep apnea on CPAP, BPH, gout, CKD STAGE 3 presented to the [facility] emergency department with altered mental status, fever and hematuria. Also reported several days of myalgias, arthralgias, hematuria, chest discomfort and a sore throat with coughing. On admission his temperature was 104.2, HR-108, RR-18, BP-127/86, SpO2-94. Labs were WBC- 9.9, H/H- 14.5/44.2, BUN-36, Mid Level Clinician-1.5, Lactic acid was 2.0. ABG: pH= 7.42, pCO2= 38, pO2= 62, HCO3= 24, Carboxyhemoglobin= 0.5ABG: UA: Protein >= 300, Hyaline casts rare, hemoglobin moderate; culture negative after 1 day Micro: negative for strep pneumo, legionella, and influenza A & B, Lyme titer was sent however he has previously had lyme IgM so a positive test could be due to IgG titer from previous exposure. 1. Fever of unknown origin with altered mental status Patient has MAXIMUM TEMPERATURE 104.2, heart rate 108. Blood pressure 127/86. No white count. Source of infection unknown. CT head scan does show complete opacification left maxillary sinus but patient has no tenderness to palpation in that area. The CT Chest/abdomen and pelvis was negative for possible sources. Pt has qSOFA of 1. Pt has no meningeal signs, nuchal rigidity, focal neurological deficits. He does report some throat discomfort and, though there is minimal erythema and no exudate, streptococcal pharyngitis was ruled out. Present symptoms are suspicious for a tick borne illness. Monitored vitals closely every shift . Maintained oxygen saturation Above 90% . Provided supplemental oxygen whenever necessary. Monitored for fever, leukocytosis, any change in mental status. 4hrs neurovascular checks and IV Tylenol for fevers. Pancultures were negative. Lyme titers, serum for PCR for Anaplasma, peripheral smear for morulae pending. He was started on doxycycline 100 mg twice a day. Completed 3 days course in the hospital. He was discharged on doxycycline 7 more days to complete total of 10 day course for empiric tickborne illness Dysphagia/odynophagia Patient was evaluated for CVA on account of family reported gait instability and odynophagia for liquids. Stat chest x-ray ruled out aspiration pneumonia Evaluation was negative for posterior cerebellar stroke. stat CAT scan head showed no evidence of acute infarct or hemorrhage. He received Aspirin 325 mg once. Continued aspirin 81 mg daily and High-dose statin Lipitor 80 mg daily. Echocardiogram and Carotid Doppler ultrasound unremarkable. PT, OT, speech and swallow evaluation was done. 2. Hematuria- H/H is stable. 3. CKD- Patient has CKD with baseline creatinine around 1.3-1.4 Continued to follow BUN and Mid Level Clinician. 4. HTN -continued anti-hypertensive medications (hydralazine, atenolol) and continued to monitor BP. 5. POSSIBLE Acute sinusitis- CT Head showed opacification of left maxillary sinus Continued antibiotic treatment and monitored for change in condition. Denied any sinus tenderness, headache 6. BPH- -continued tamsulosin treatment 7. Gout- -continued allopurinol treatment 8. HyperLipidemia Continued statins DVT prophylaxis- ALPS Code Status- full code Complications: none Allergies: Coded Allergies: NO KNOWN ALLERGIES (06/20/14) Significant Procedures: none Pertinent Lab Results: head ct FINDINGS: There is no acute intracranial hemorrhage or abnormal extra-axial collection. No intracranial mass effect or midline shift. There are a few scattered nonspecific foci of hypoattenuation within the periventricular white matter most likely represent a chronic manifestation of small vessel ischemia. Mcclure-white matter differentiation is otherwise grossly preserved and there is no evidence of acute territorial infarct. The calvarium and skull base are intact. Mastoid air cells and middle ear cavities are well aerated. There is moderate to severe paranasal sinus disease primarily involving the maxillary sinuses. IMPRESSION: There are a few chronic small vessel ischemic changes within the periventricular white matter that remain largely unchanged when compared to the recent CT scan of the head from 11/19/2016. No evidence of acute territorial infarct or hemorrhage. cxr FINDINGS: There are ill-defined reticular markings within the lung bases that most likely represent a manifestation of subsegmental atelectasis. There is no overt consolidative disease or effusion. The cardiac silhouette is grossly enlarged and there is bilateral hilar vascular engorgement with cephalization of pulmonary vessels. Upper mediastinal contours are stable. No acute osseous finding. IMPRESSION: The cardiac silhouette is grossly enlarged and there is hilar vascular engorgement with cephalization of pulmonary vessels. No overt pulmonary consolidation. echo CONCLUSIONS 1. Mild aortic sclerosis is present with no anatomic evidence of valvular stenosis or insufficiency. THe peak gradient across the aortic valve is 22 mmHg. 2. Mitral leaflet thickening is present with minimal to mild mitral insufficiency and mild to moderate left atrial enlargement. 3. A very small pericardial effusion is present which is hemodynamically insignificant 4. The left ventricular chamber size and systolic function appear normal. Mild concentric hypertrophy is present with no resting wall motion abnormalities. 5. Minimal to mild tricuspid and pulmonic insfficiency are present with no evidence of significant pulmonary hypertension 6. Lipomatous hypertrophy of the atrial septum is noted. 7. No definite embolic sources were identified on this examination. If clinically indicated a EARLE would better exclude potential embolic sources. carotid doppler IMPRESSION: 1. The right internal carotid artery shows no hemodynamically significant stenosis. 2. The left internal carotid artery shows no hemodynamically significant stenosis. 3. The Doppler velocities are consistent with less than 50% stenosis on either side. 4. Both vertebral arteries are patent and show antegrade flow. chest/abd ct IMPRESSION: - No acute findings within the chest, abdomen, or pelvis. - Mild bibasilar atelectasis. No evidence of focal pneumonia. - Sigmoid diverticulosis without acute diverticulitis. - Bilateral renal cysts. Disposition Summary Disposition Principal Diagnosis: Sepsis of unknown origin Altered mental status Additional Diagnosis: Fever of unknown origin possibly tick borne illness Discharge Disposition: home or self care Discharge Instructions General Discharge Information Code Status: Full Code Patient's Diet: Tolerated Patient's Activity: as Tolerated Follow-Up Instructions/Appts: Please follow-up with primary care doctor in 1-2 weeks Medications at Discharge Discharge Medications: Continue taking these medications: Allopurinol (Allopurinol) 300 MG TAB 1 Tablet ORAL DAILY Qty = 90 Comments: PER PT MED LIST FROM [facility] Amlodipine (Norvasc 5MG Tab) 5 MG TABLET 1 Tablet ORAL DAILY Qty = 90 Comments: PER PT MED LIST FROM [facility] Furosemide (Furosemide) 20 MG TABLET 1 Tablet ORAL TWICE DAILY Qty = 60 Comments: PER PT MED LIST FROM [facility] Pravastatin Sodium (Pravastatin Sodium) 40 MG TABLET 1 Tablet ORAL Every night Qty = 90 Comments: PER PT MED LIST FROM [facility] Atenolol (Atenolol) 25 MG TABLET 1 Tablet ORAL DAILY Qty = 90 Comments: PER PT MED LIST FROM [facility] Aspirin (Ecotrin) 81 MG ECT 1 Tablet ORAL DAILY Comments: PER PT MED LIST FROM [facility] Valsartan (Valsartan) 80 MG TABLET 1 Tablet ORAL DAILY Qty = 30 Comments: PER PT MED LIST FROM [facility] HYDRALAZINE HCL (Hydralazine HCl) 25 MG TABLET 1 Tablet ORAL TWICE DAILY Qty = 180 Comments: PER PT MED LIST FROM [facility] TAMSULOSIN HCL (Tamsulosin Hydrochloride) 0.4 MG CAP.ER.24H 1 Capsule ORAL DAILY Qty = 90 Comments: PER PT TAKES IN PM Start taking the following new medications: Doxycycline Hyclate (Doxycycline Hyclate) 100 MG CAPSULE 100 Milligram ORAL TWICE DAILY Days = 7 No Refills Guaifenesin (Guaifenesin ER) 600 MG TAB.ER.12H 600 Milligram ORAL EVERY 12 HOURS Qty = 15 No Refills Copies To: JOHN PECK,DREW Arteaga
== END 2016-11-22 14:35 | DRG 864 ==
LOC: ERH 22:41 → 2NA 11-19 01:56 → ERHI 11-19 01:56 → ENRESERV 11-19 03:48 → 2NA 11-19 04:27 → ENPENDDIS 11-22 12:33 → 2NA 11-22 14:35
PROVIDERS: Internal Medicine; Pediatrics; ADMIT Student in an Organized Health Care Education/Training Program
DX: R50.9 Fever, unspecified (principal); G92 Toxic encephalopathy; J01.90 Acute sinusitis, unspecified; G47.33 Obstructive sleep apnea (adult) (pediatric); N40.0 Benign prostatic hyperplasia without lower urinary tract symptoms; R13.10 Dysphagia, unspecified; E78.5 Hyperlipidemia, unspecified; I25.10 Atherosclerotic heart disease of native coronary artery without angina pectoris; M10.9 Gout, unspecified
CPT/HCPCS: 2NASP; 86618; 87798; 36415; 74176; 80307; 81001; 82436; 87040; 87086; 87147; 87389; 87449; 87450; 87804; 87804-59; 93005; 93010; 93306; 96374; 96375; 97110-GO; 97116-GO; 97161-GP; 97165-GO; 97530-GO; J0131; J0456; J0696; J1885; J3370; J3490; J7040

== ENCOUNTER 2017-07-07 16:00 | Emergency (ER) | payer OTHER ==
[~2017-07-07 16:00] MED LIST changes: +DOXYCYCLINE HY100 M2 PO; +GUAIFENESIN ER600 MG PO
--- NOTE | 2017-07-07 17:15 | ED UPPER/LOWER EXTREMITY COMPL ---
History of Present Illness General Chief Complaint: Lower Extremity Injury Stated Complaint: L KNEE PAIN S/P FALL THIS AM Source: patient Exam Limitations: no limitations Vital Signs & Intake/Output Vital Signs & Intake/Output Vital Signs Date Time Temp Pulse Resp B/P B/P Pulse O2 O2 Flow FiO2 Mean Ox Delivery Rate 07/079 98.4 63 18 178/84 95 Room Air 07/07 1607 62 20 171/77 97 Allergies Coded Allergies: hydrochlorothiazide (UNKNOWN 05/22/17) lisinopril (UNKNOWN 05/22/17) losartan (UNKNOWN 05/22/17) Reconcile Medications Allopurinol 300 MG TAB 1 TAB PO DAILY GOUT (Reported) Amlodipine (Norvasc 5MG Tab) 5 MG TABLET 1 TAB PO DAILY BP (Reported) Aspirin (Ecotrin) 81 MG ECT 1 TAB PO DAILY HEART (Reported) Atenolol 25 MG TABLET 1 TAB PO DAILY BP (Reported) Doxycycline Hyclate 100 MG CAPSULE 100 MG PO BID TICK BITE Furosemide 20 MG TABLET 1 TAB PO BID DIURETIC (Reported) Guaifenesin (Guaifenesin ER) 600 MG TAB.ER.12H 600 MG PO Q12 COUGH HYDRALAZINE HCL (Hydralazine HCl) 25 MG TABLET 1 TAB PO BID BP (Reported) Pravastatin Sodium 40 MG TABLET 1 TAB PO QPM CHOLESTEROL (Reported) TAMSULOSIN HCL (Tamsulosin Hydrochloride) 0.4 MG CAP.ER.24H 1 CAP PO DAILY PROSTATE (Reported) Valsartan 80 MG TABLET 1 TAB PO DAILY BP (Reported) Triage Note: PER PT/ FELL THIS AM L KNEE WENT [facility] PT, CONT WITH PAIN DID NOT HIT HEAD NO LOC Triage Nurses Notes Reviewed? yes Onset: Gradual Duration: constant Timing: recent history Severity: severe Severity Numbers: 7 HPI: Patient is an 82-year-old male who presents emergency room in which earlier today he was ambulating outside his backyard where he slipped on ice and hyperflexed his left great toe after falling backwards and which she states that at the time there is no pain patient denies any trauma denies any head strike preceding episode of lightheaded sensation or dizziness however he states that he laid down to take a nap however when waking up patient states that he had gradual onset of left sided great toe localized pain is made worse with ambulation and palpation. Patient did DRIVE to the emergency room in a private vehicle and uses a cane Past History Travel History Traveled to [place] past 21 day No Medical History Any Pertinent Medical History? 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 Psychosocial History Who do you live with Spouse Services at Home None What is your primary language Jamaican Tobacco Use: Never used Family History Family History, If Any: Relation not specified for: *No pertinent family history Hx Contributory? No Review of Systems Review of Systems Constitutional: Reports: no symptoms. EENTM: Reports: no symptoms. Respiratory: Reports: no symptoms. Cardiovascular: Reports: no symptoms. Gastrointestinal/Abdominal: Reports: no symptoms. Genitourinary: Reports: no symptoms. Musculoskeletal: Reports: see HPI, joint pain. Skin: Reports: no symptoms. Neurological/Psychological: Reports: no symptoms. Hematologic/Endocrine: Reports: no symptoms. Immunological: Reports: no symptoms. All Other Systems: Reviewed and Negative Physical Exam Physical Exam General Appearance: no apparent distress, obese Head: atraumatic Eyes: Bilateral: normal appearance. Ears, Nose, Throat: hearing grossly normal Neck: normal inspection Cardiovascular/Respiratory: no respiratory distress Peripheral Pulses: 2+ dorsalis pedis (L) Knee Left: normal range of motion, normal inspection Neurologic/Tendon: normal sensation, normal motor functions, normal tendon functions, responds to pain, no evidence tendon injury, no pulse deficit Skin: intact, normal color, warm/dry Comments: Left ankle normal inspection nontender full active range of motion Left foot normal inspection carpal metacarpal bones nontender Great toe noted jealous point tenderness upon palpation skin intact no nail trauma or involvement 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 capillary refill less than 2 seconds Progress Differential Diagnosis: arterial insufficiency, compartment syndrome, contusion, dislocation, DVT, fracture, gout, septic arthritis, sprain, tendon injury Plan of Care: Orders Procedure Date/time Status XRY-TOES, LEFT 07/07 1708 Active Patient was offered pain medications and declines On examination patient has no other areas of trauma from the fall earlier today No osseous injury noted on x-rays from where patient was point tender and most likely patient will be treated for concerns of left great toe sprain Diagnostic Imaging: Viewed by Me: Radiology Read. Radiology Impression: no acute abnormality, no fracture, no dislocation Comments: PATIENT: QUINN CUMMINGS PRESENT AGE: 82 PATIENT ACCOUNT NO: [id number] : 37 LOCATION: [facility] ORDERING PHYSICIAN: Saji HERANNDEZ SERVICE DATE: 07/07/17 EXAM TYPE: RAD - XRY-TOES, LEFT EXAMINATION: XR TOES, LEFT CLINICAL INFORMATION: Fall. Pain. COMPARISON: None TECHNIQUE: 3 views of the left toes were obtained. FINDINGS: No fracture. No dislocation. Bone and joints are normal. IMPRESSION: Unremarkable examination. DICTATED BY: Truman Maciel MD DATE/TIME DICTATED:07/07/171756 SUPERVISOR GROUNDS:VERO Departure Departure Disposition: HOME OR SELF CARE Condition: Stable Clinical Impression Primary Impression: Sprain of great toe of left foot Referrals: Anabel TATE,Miguel Chaudhari MD,Abdirizak Arteaga (PCP/Family) Additional Instructions: As discussed begin TO ICE THE area for pain and INFLAMMATION, begin over-the- counter Naprosyn for pain and inflammation, if no better in one week follow-up with neuro urologist Dr. Little, if symptoms worsen return to the emergency room begin to elevate the foot for swelling if needed Continue to use the cane for fall prevention Departure Forms: Customer Survey General Discharge Information
--- NOTE | 2017-07-07 18:02 | RADIOLOGY REPORT ---
EXAMINATION: XR TOES, LEFT CLINICAL INFORMATION: Fall. Pain. COMPARISON: None TECHNIQUE: 3 views of the left toes were obtained. FINDINGS: No fracture. No dislocation. Bone and joints are normal. IMPRESSION: Unremarkable examination.
[2017-07-07 18:19] VITALS: BP 178/84
== END 2017-07-07 18:21 ==
LOC: ERH 16:00
DX: S93.502A Unspecified sprain of left great toe, initial encounter (principal); M25.562 Pain in left knee; W00.0XXA Fall on same level due to ice and snow, initial encounter; Y93.01 Activity, walking, marching and hiking; Y92.009 Unspecified place in unspecified non-institutional (private) residence as the place of occurrence of the external cause
CPT/HCPCS: 73660-LT